=== PATIENT | female | born 1965 | race American Indian/Alaskan Native ===

== ENCOUNTER 2017-01-27 13:29 | Emergency (ER) | payer OTHER ==
[2017-01-27] MEDS ORDERED: NACL 0.9% 1000 ML 1,000 ML IV ONE (13:58)
[2017-01-27] MEDS ORDERED: ATIVAN IV ONE (13:59)
--- NOTE | 2017-01-27 14:00 | Emergency Department Report ---
ED Palpitations HPI - General Chief Complaint: Chest Pain Stated Complaint: RAPID HEART RATE Time Seen by Provider: 01/27/17 13:51 Source: patient, EMS, RN notes reviewed Mode of arrival: Stretcher Limitations: No Limitations - History of Present Illness Initial Comments: This is a 51-year-old female. She is previously unknown to me. She is brought to the hospital via EMS. Patient reports a past medical history of hypertension. Patient presents to the ER with tachycardia and arrhythmia. As per EMS documentation, patient has a chief complaint of heart racing. Patient was initially found to be in SVT. Patient had an initial EKG performed , which demonstrated SVT. EMS gave 6 mg of adenosine, which did not change the patient's condition. EMS then gave 12 mg of adenosine, EMS documents a decrease in heart rate from 180-124 bpm. Initial EKG demonstrates SVT, first EKG taken at 13:02:29. Repeat EKG demonstrated sinus tachycardia, a repeat EKG demonstrates sinus tachycardia. The patient denies chest pain and shortness of breath. There is no leg pain or leg swelling. No recent trips greater than 4 hours. No recent hospital admissions. There is no hematemesis. There is no bright red blood per rectum. There is no cocaine use. Patient denies recent trips greater than 4 hours. Denies recent hospital admissions. The patient denies irritative and obstructive urinary symptoms, she does admits to right-sided lower back pain which has been present for weeks, this is not new , worsening or different. Patient reports that she is not . MD Complaint: rapid heart beat, "heart racing", "skipped beats", palpitations -: Sudden Context: occured during rest Associated Symptoms: denies: shortness of breath, syncope, near-syncope, nausea/ vomiting, diaphoresis, cough, parasthesias, muscle cramps Treatments Prior to Arrival: adenosine - Related Data Home Medications Medication Instructions Recorded Confirmed Last Taken Hydrochlorothiazide [HCTZ] 25 mg PO DAILY 01/27/17 01/27/17 Unknown Previous Rx's Medication Instructions Recorded Last Taken Type Metoprolol [Lopressor TAB] 25 mg PO BID #60 tablet 01/27/17 Unknown Rx Allergies Allergy/AdvReac Type Severity Reaction Status Date / Time No Known Allergies Allergy Unverified 01/27/17 13:38 ED Review of Systems ROS: Stated complaint: RAPID HEART RATE Other details as noted in HPI Constitutional: denies: fever, malaise Eyes: denies: vision change ENT: denies: epistaxis Cardiovascular: palpitations Gastrointestinal: denies: vomiting Genitourinary: denies: dysuria Musculoskeletal: denies: back pain Skin: denies: lesions Neurological: weakness Psychiatric: as per HPI ED Past Medical Hx - Past Medical History Previous Medical History?: Yes Hx Hypertension: Yes Hx Asthma: Yes Additional medical history: bronchitis, - Surgical History Past Surgical History?: Yes Additional Surgical History: R. ankle - Social History Smoking Status: Current Every Day Smoker - Medications Home Medications: Home Medications Medication Instructions Recorded Confirmed Last Taken Type Hydrochlorothiazide [HCTZ] 25 mg PO DAILY 01/27/17 01/27/17 Unknown History Metoprolol [Lopressor TAB] 25 mg PO BID #60 tablet 01/27/17 Unknown Rx ED Physical Exam - General Limitations: No Limitations General appearance: alert, in no apparent distress - Head Head exam: Present: atraumatic, normocephalic - Eye Eye exam: Present: normal appearance, EOMI. Absent: nystagmus - ENT ENT exam: Present: normal exam, normal orophraynx, mucous membranes moist, normal external ear exam - Neck Neck exam: Present: normal inspection, full ROM. Absent: tenderness, meningismus - Respiratory Respiratory exam: Present: normal lung sounds bilaterally. Absent: respiratory distress, wheezes, rales, rhonchi, stridor, decreased breath sounds - Cardiovascular Cardiovascular Exam: Present: normal rhythm, tachycardia, normal heart sounds. Absent: systolic murmur, diastolic murmur, rubs, gallop - GI/Abdominal GI/Abdominal exam: Present: soft, normal bowel sounds. Absent: distended, tenderness, guarding, rebound, rigid, pulsatile mass - Extremities Exam Extremities exam: Present: normal inspection, full ROM, normal capillary refill. Absent: tenderness, pedal edema, joint swelling, calf tenderness - Back Exam Back exam: Present: normal inspection, full ROM. Absent: tenderness, CVA tenderness (R), CVA tenderness (L), muscle spasm, paraspinal tenderness, vertebral tenderness - Neurological Exam Neurological exam: Present: alert, oriented X3, normal gait, other (Extraocular movements intact. Tongue midline. No facial droop. Facial sensation intact to light touch in the V1, V2, V3 distribution bilaterally. 5 and 5 strength in 4 extremities.. Sensation is intact to light touch in 4 extremities.). Absent : motor sensory deficit - Psychiatric Psychiatric exam: Present: normal affect, normal mood - Skin Skin exam: Present: warm, dry, intact, normal color. Absent: rash ED Course Vital Signs 01/27/17 01/27/17 01/27/17 13:44 13:45 13:47 Temperature Pulse Rate 126 H 124 H 125 H Respiratory 18 27 H 26 H Rate Blood Pressure Blood Pressure [Right] O2 Sat by Pulse Oximetry 01/27/17 01/27/17 01/27/17 13:49 13:51 13:53 Temperature Pulse Rate 127 H 127 H 124 H Respiratory 23 21 16 Rate Blood Pressure Blood Pressure [Right] O2 Sat by Pulse Oximetry 01/27/17 01/27/17 01/27/17 13:55 13:57 13:59 Temperature Pulse Rate 124 H 125 H 124 H Respiratory 26 H 20 20 Rate Blood Pressure 153/93 153/93 153/93 Blood Pressure [Right] O2 Sat by Pulse Oximetry 01/27/17 01/27/17 01/27/17 14:00 14:01 14:03 Temperature 98.2 F Pulse Rate 122 H 121 H 120 H Respiratory 24 24 17 Rate Blood Pressure 165/89 165/89 165/89 Blood Pressure 153/93 [Right] O2 Sat by Pulse Oximetry 01/27/17 01/27/17 01/27/17 14:05 14:07 14:09 Temperature Pulse Rate 120 H 120 H 126 H Respiratory 22 21 22 Rate Blood Pressure 165/89 165/89 165/89 Blood Pressure [Right] O2 Sat by Pulse Oximetry 01/27/17 01/27/17 01/27/17 14:11 14:13 14:15 Temperature Pulse Rate 122 H 120 H 119 H Respiratory 22 21 21 Rate Blood Pressure 165/89 165/89 165/89 Blood Pressure [Right] O2 Sat by Pulse Oximetry 01/27/17 01/27/17 01/27/17 14:17 14:19 14:21 Temperature Pulse Rate 119 H 118 H 116 H Respiratory 20 21 22 Rate Blood Pressure 165/89 165/89 165/89 Blood Pressure [Right] O2 Sat by Pulse Oximetry 01/27/17 01/27/17 01/27/17 14:23 14:25 14:27 Temperature Pulse Rate 116 H 117 H 115 H Respiratory 21 20 20 Rate Blood Pressure 165/89 165/89 165/89 Blood Pressure [Right] O2 Sat by Pulse Oximetry 01/27/17 01/27/17 01/27/17 14:29 14:30 14:31 Temperature Pulse Rate 121 H 122 H 123 H Respiratory 17 20 20 Rate Blood Pressure 165/89 145/98 145/98 Blood Pressure [Right] O2 Sat by Pulse Oximetry 01/27/17 01/27/17 01/27/17 14:33 14:35 14:37 Temperature Pulse Rate 122 H 118 H 117 H Respiratory 21 18 19 Rate Blood Pressure 145/98 145/98 145/98 Blood Pressure [Right] O2 Sat by Pulse Oximetry 01/27/17 01/27/17 01/27/17 14:39 14:41 14:43 Temperature Pulse Rate 120 H 118 H 115 H Respiratory 14 21 16 Rate Blood Pressure 145/98 145/98 145/98 Blood Pressure [Right] O2 Sat by Pulse Oximetry 01/27/17 01/27/17 01/27/17 14:45 14:47 14:49 Temperature Pulse Rate 114 H 114 H 118 H Respiratory 18 18 26 H Rate Blood Pressure 145/98 145/98 145/98 Blood Pressure [Right] O2 Sat by Pulse Oximetry 01/27/17 01/27/17 01/27/17 14:51 14:53 14:55 Temperature Pulse Rate 117 H 114 H 119 H Respiratory 27 H 22 23 Rate Blood Pressure 145/98 145/98 145/98 Blood Pressure [Right] O2 Sat by Pulse Oximetry 01/27/17 01/27/17 01/27/17 14:56 14:57 15:03 Temperature Pulse Rate 117 H 117 H Respiratory 21 16 Rate Blood Pressure 145/98 145/98 145/98 Blood Pressure [Right] O2 Sat by Pulse 98 Oximetry 01/27/17 01/27/17 01/27/17 15:05 15:06 15:08 Temperature Pulse Rate 114 H 118 H 114 H Respiratory 25 H 23 23 Rate Blood Pressure 149/107 149/107 149/107 Blood Pressure [Right] O2 Sat by Pulse 98 99 99 Oximetry 01/27/17 01/27/17 01/27/17 15:10 15:12 15:14 Temperature Pulse Rate 109 H 112 H Respiratory 20 18 18 Rate Blood Pressure 149/107 149/107 Blood Pressure [Right] O2 Sat by Pulse 99 97 Oximetry 01/27/17 01/27/17 01/27/17 15:16 15:18 15:19 Temperature Pulse Rate 107 H 109 H 113 H Respiratory 19 13 22 Rate Blood Pressure 149/107 149/107 Blood Pressure [Right] O2 Sat by Pulse 98 98 97 Oximetry 01/27/17 01/27/17 01/27/17 15:20 15:22 15:24 Temperature Pulse Rate 112 H 112 H 109 H Respiratory 22 21 25 H Rate Blood Pressure Blood Pressure [Right] O2 Sat by Pulse 97 97 96 Oximetry 01/27/17 01/27/17 01/27/17 15:26 15:28 15:30 Temperature Pulse Rate 114 H 111 H 111 H Respiratory 13 20 26 H Rate Blood Pressure Blood Pressure [Right] O2 Sat by Pulse 96 96 96 Oximetry 01/27/17 01/27/17 01/27/17 15:32 15:34 15:36 Temperature Pulse Rate 109 H 109 H 105 H Respiratory 27 H 26 H 22 Rate Blood Pressure Blood Pressure [Right] O2 Sat by Pulse 96 96 98 Oximetry 01/27/17 01/27/17 01/27/17 15:38 15:40 15:42 Temperature Pulse Rate 106 H 114 H 112 H Respiratory 19 16 18 Rate Blood Pressure 149/107 149/107 Blood Pressure [Right] O2 Sat by Pulse 98 100 98 Oximetry 01/27/17 01/27/17 01/27/17 15:44 15:46 15:48 Temperature Pulse Rate 115 H 113 H 112 H Respiratory 20 26 H 24 Rate Blood Pressure 149/107 149/107 149/107 Blood Pressure [Right] O2 Sat by Pulse 97 99 98 Oximetry 01/27/17 01/27/17 01/27/17 15:50 15:52 15:54 Temperature Pulse Rate 109 H 108 H 110 H Respiratory 26 H 23 18 Rate Blood Pressure 149/107 149/107 149/107 Blood Pressure [Right] O2 Sat by Pulse 98 99 99 Oximetry 01/27/17 01/27/17 01/27/17 15:56 15:58 16:00 Temperature Pulse Rate 110 H 107 H 108 H Respiratory 18 22 23 Rate Blood Pressure 149/107 149/107 156/102 Blood Pressure [Right] O2 Sat by Pulse 98 98 98 Oximetry 01/27/17 01/27/17 01/27/17 16:02 16:04 16:06 Temperature Pulse Rate 110 H 108 H 110 H Respiratory 22 22 15 Rate Blood Pressure 156/102 156/102 156/102 Blood Pressure [Right] O2 Sat by Pulse 98 98 98 Oximetry 01/27/17 01/27/17 01/27/17 16:08 16:10 16:12 Temperature Pulse Rate 115 H 115 H 113 H Respiratory 21 20 18 Rate Blood Pressure 156/102 156/102 156/102 Blood Pressure [Right] O2 Sat by Pulse Oximetry 01/27/17 01/27/17 01/27/17 16:14 16:16 16:18 Temperature Pulse Rate 108 H 104 H 102 H Respiratory 17 22 23 Rate Blood Pressure 156/102 156/102 156/102 Blood Pressure [Right] O2 Sat by Pulse 95 94 95 Oximetry 01/27/17 01/27/17 01/27/17 16:20 16:22 16:24 Temperature Pulse Rate 104 H 103 H 102 H Respiratory 23 23 23 Rate Blood Pressure 156/102 156/102 156/102 Blood Pressure [Right] O2 Sat by Pulse 94 95 93 Oximetry 01/27/17 01/27/17 01/27/17 16:26 16:28 16:30 Temperature Pulse Rate 105 H 107 H 102 H Respiratory 22 22 20 Rate Blood Pressure 156/102 156/102 156/102 Blood Pressure [Right] O2 Sat by Pulse 94 Oximetry 01/27/17 01/27/17 01/27/17 16:32 16:34 16:36 Temperature Pulse Rate 102 H 102 H 104 H Respiratory 22 21 20 Rate Blood Pressure 156/102 156/102 156/102 Blood Pressure [Right] O2 Sat by Pulse 94 93 95 Oximetry 01/27/17 01/27/17 01/27/17 16:38 16:40 16:42 Temperature Pulse Rate 99 H 102 H 117 H Respiratory 21 16 22 Rate Blood Pressure 156/102 156/102 156/102 Blood Pressure [Right] O2 Sat by Pulse 94 96 98 Oximetry 01/27/17 01/27/17 01/27/17 16:44 16:46 16:48 Temperature Pulse Rate 112 H 107 H 105 H Respiratory 23 22 21 Rate Blood Pressure 156/102 156/102 156/102 Blood Pressure [Right] O2 Sat by Pulse 95 92 Oximetry 0401/27/17 01/27/17 16:50 16:52 16:54 Temperature Pulse Rate 105 H 102 H 102 H Respiratory 21 20 21 Rate Blood Pressure 156/102 156/102 156/102 Blood Pressure [Right] O2 Sat by Pulse 91 92 93 Oximetry 01/27/17 01/27/17 01/27/17 16:56 16:58 16:59 Temperature Pulse Rate 103 H 103 H 103 H Respiratory 20 21 21 Rate Blood Pressure 156/102 156/102 156/102 Blood Pressure [Right] O2 Sat by Pulse 91 Oximetry 01/27/17 01/27/17 01/27/17 17:00 17:01 17:02 Temperature Pulse Rate 102 H 101 H 101 H Respiratory 18 20 21 Rate Blood Pressure 155/88 155/88 155/88 Blood Pressure [Right] O2 Sat by Pulse 94 93 94 Oximetry 01/27/17 01/27/17 01/27/17 17:04 17:06 17:08 Temperature Pulse Rate 106 H 106 H 104 H Respiratory 19 22 16 Rate Blood Pressure 155/88 155/88 155/88 Blood Pressure [Right] O2 Sat by Pulse 95 95 95 Oximetry 01/27/17 01/27/17 01/27/17 17:10 17:12 17:14 Temperature Pulse Rate 102 H 109 H 104 H Respiratory 20 16 20 Rate Blood Pressure 155/88 155/88 155/88 Blood Pressure [Right] O2 Sat by Pulse 93 93 93 Oximetry 01/27/17 01/27/17 01/27/17 17:15 17:16 17:25 Temperature Pulse Rate 108 H 101 H Respiratory 26 H 18 Rate Blood Pressure 155/88 155/88 Blood Pressure 155/88 [Right] O2 Sat by Pulse 96 94 97 Oximetry - Reevaluation(s) Reevaluation #1: 01/27/17 14:34 Differential diagnosis: Arrhythmia, SVT, electrolyte imbalance, dehydration, anemia, acute coronary syndrome, pulmonary embolus Assessment and plan: 51-year-old female with apparently unprovoked SVT. There are no pulmonary embolus or DVT risk factors, she is low risk by well's criteria. She is clinically sober, and denies sympathomimetic ingestion. She is clinically well appearing at this time, the only noted abnormality is tachycardia, which appears to be improving. I think it is unlikely that she requires admission for acute coronary syndrome risk stratification. We will check basic laboratory studies, x-ray of the chest, reassess after initial data points. We will also discuss with cardiology on-call. Reevaluation #2: 01/27/17 16:18 laboratory studies reviewed and are unremarkable. D-dimer negative. Repeat EKG demonstrates persistent tachycardia, with rate of 113. Case is discussed with cardiology, Dr. Velazquez He has personally reviewed the patient's EKGs. We both agree patient is suitable for discharge, with beta donato. Cardiology is okay with administration of beta donato in the emergency room for correction of persistent tachycardia. The patient reports that she feels more improved. Reevaluation #3: 01/27/17 16:22 Patient is chest pain-free without any shortness of breath or symptoms consistent with acute coronary syndrome. I don't believe that she requires a restrained medication in the emergency department for acute coronary syndrome. Low risk by FRANCOISE score, low risk by heart score. Reevaluation #4: 01/27/17 16:39 Heart rate is now 101. Patient resting comfortably. I see no indication for Lopressor at this time. Patient will be discharged. ED Medical Decision Making - Lab Data Result diagrams: 01/27/17 13:58 01/27/17 13:58 Vital Signs 01/27/17 14:00 Temperature 98.2 F Pulse Rate 130 H Respiratory 18 Rate Blood Pressure 153/93 [Right] Vital Signs 01/27/17 01/27/17 01/27/17 13:44 13:45 13:47 Temperature Pulse Rate 126 H 124 H 125 H Respiratory 18 27 H 26 H Rate Blood Pressure Blood Pressure [Right] O2 Sat by Pulse Oximetry 01/27/17 01/27/17 01/27/17 13:49 13:51 13:53 Temperature Pulse Rate 127 H 127 H 124 H Respiratory 23 21 16 Rate Blood Pressure Blood Pressure [Right] O2 Sat by Pulse Oximetry 01/27/17 01/27/17 01/27/17 13:55 13:57 13:59 Temperature Pulse Rate 124 H 125 H 124 H Respiratory 26 H 20 20 Rate Blood Pressure 153/93 153/93 153/93 Blood Pressure [Right] O2 Sat by Pulse Oximetry 01/27/17 01/27/17 01/27/17 14:00 14:01 14:03 Temperature 98.2 F Pulse Rate 122 H 121 H 120 H Respiratory 24 24 17 Rate Blood Pressure 165/89 165/89 165/89 Blood Pressure 153/93 [Right] O2 Sat by Pulse Oximetry 01/27/17 01/27/17 01/27/17 14:05 14:07 14:09 Temperature Pulse Rate 120 H 120 H 126 H Respiratory 22 21 22 Rate Blood Pressure 165/89 165/89 165/89 Blood Pressure [Right] O2 Sat by Pulse Oximetry 01/27/17 01/27/17 01/27/17 14:11 14:13 14:15 Temperature Pulse Rate 122 H 120 H 119 H Respiratory 22 21 21 Rate Blood Pressure 165/89 165/89 165/89 Blood Pressure [Right] O2 Sat by Pulse Oximetry 01/27/17 01/27/17 01/27/17 14:17 14:19 14:21 Temperature Pulse Rate 119 H 118 H 116 H Respiratory 20 21 22 Rate Blood Pressure 165/89 165/89 165/89 Blood Pressure [Right] O2 Sat by Pulse Oximetry 01/27/17 01/27/17 01/27/17 14:23 14:25 14:27 Temperature Pulse Rate 116 H 117 H 115 H Respiratory 21 20 20 Rate Blood Pressure 165/89 165/89 165/89 Blood Pressure [Right] O2 Sat by Pulse Oximetry 01/27/17 01/27/17 01/27/17 14:29 14:30 14:31 Temperature Pulse Rate 121 H 122 H 123 H Respiratory 17 20 20 Rate Blood Pressure 165/89 145/98 145/98 Blood Pressure [Right] O2 Sat by Pulse Oximetry 01/27/17 01/27/17 01/27/17 14:33 14:35 14:37 Temperature Pulse Rate 122 H 118 H 117 H Respiratory 21 18 19 Rate Blood Pressure 145/98 145/98 145/98 Blood Pressure [Right] O2 Sat by Pulse Oximetry 01/27/17 01/27/17 01/27/17 14:39 14:41 14:43 Temperature Pulse Rate 120 H 118 H 115 H Respiratory 14 21 16 Rate Blood Pressure 145/98 145/98 145/98 Blood Pressure [Right] O2 Sat by Pulse Oximetry 01/27/17 01/27/17 01/27/17 14:45 14:47 14:49 Temperature Pulse Rate 114 H 114 H 118 H Respiratory 18 18 26 H Rate Blood Pressure 145/98 145/98 145/98 Blood Pressure [Right] O2 Sat by Pulse Oximetry 01/27/17 01/27/17 01/27/17 14:51 14:53 14:55 Temperature Pulse Rate 117 H 114 H 119 H Respiratory 27 H 22 23 Rate Blood Pressure 145/98 145/98 145/98 Blood Pressure [Right] O2 Sat by Pulse Oximetry 01/27/17 01/27/17 01/27/17 14:56 14:57 15:03 Temperature Pulse Rate 117 H 117 H Respiratory 21 16 Rate Blood Pressure 145/98 145/98 145/98 Blood Pressure [Right] O2 Sat by Pulse 98 Oximetry 01/27/17 01/27/17 01/27/17 15:05 15:06 15:12 Temperature Pulse Rate 114 H 118 H Respiratory 25 H 23 18 Rate Blood Pressure 149/107 149/107 Blood Pressure [Right] O2 Sat by Pulse 98 99 Oximetry Lab Results 01/27/17 01/27/17 01/27/17 Range/Units 13:58 13:58 14:04 WBC 6.6 (4.5-11.0) K/mm3 RBC 5.23 H (3.65-5.03) M/mm3 Hgb 14.3 (10.1-14.3) gm/dl Hct 42.7 (30.3-42.9) % MCV 82 (79-97) fl MCH 27 L (28-32) pg MCHC 34 (30-34) % RDW 14.9 (13.2-15.2) % Plt Count 232 (140-440) K/mm3 Lymph % (Auto) 39.3 H (13.4-35.0) % Walker % (Auto) 6.6 (0.0-7.3) % Eos % (Auto) 1.9 (0.0-4.3) % Baso % (Auto) 1.0 (0.0-1.8) % Lymph # 2.6 (1.2-5.4) K/mm3 Walker # 0.4 (0.0-0.8) K/mm3 Eos # 0.1 (0.0-0.4) K/mm3 Baso # 0.1 (0.0-0.1) K/mm3 Seg Neutrophils % 51.2 (40.0-70.0) % Seg Neutrophils # 3.4 (1.8-7.7) K/mm3 PT 12.5 (12.2-14.9) Sec. INR 0.94 (0.87-1.13) D-Dimer < 135 (0-234) ng/mlDDU Sodium 139 (137-145) mmol/L Potassium 4.6 (3.6-5.0) mmol/L Chloride 100.1 (98-107) mmol/L Carbon Dioxide 24 (22-30) mmol/L Anion Gap 20 mmol/L BUN 10 (7-17) mg/dL Creatinine 0.7 (0.7-1.2) mg/dL Estimated GFR > 60 ml/min BUN/Creatinine Ratio 14.28 % Glucose 104 H (65-100) mg/dL Calcium 9.3 (8.4-10.2) mg/dL Magnesium (1.7-2.3) mg/dL Troponin T < 0.010 (0.00-0.029) ng/mL TSH (0.270-4.200) mlU/mL HCG, Quant (0-4) mIU/mL 01/27/17 01/27/17 01/27/17 Range/Units 14:04 14:04 14:04 WBC (4.5-11.0) K/mm3 RBC (3.65-5.03) M/mm3 Hgb (10.1-14.3) gm/dl Hct (30.3-42.9) % MCV (79-97) fl MCH (28-32) pg MCHC (30-34) % RDW (13.2-15.2) % Plt Count (140-440) K/mm3 Lymph % (Auto) (13.4-35.0) % Walker % (Auto) (0.0-7.3) % Eos % (Auto) (0.0-4.3) % Baso % (Auto) (0.0-1.8) % Lymph # (1.2-5.4) K/mm3 Walker # (0.0-0.8) K/mm3 Eos # (0.0-0.4) K/mm3 Baso # (0.0-0.1) K/mm3 Seg Neutrophils % (40.0-70.0) % Seg Neutrophils # (1.8-7.7) K/mm3 PT (12.2-14.9) Sec. INR (0.87-1.13) D-Dimer (0-234) ng/mlDDU Sodium (137-145) mmol/L Potassium (3.6-5.0) mmol/L Chloride (98-107) mmol/L Carbon Dioxide (22-30) mmol/L Anion Gap mmol/L BUN (7-17) mg/dL Creatinine (0.7-1.2) mg/dL Estimated GFR ml/min BUN/Creatinine Ratio % Glucose (65-100) mg/dL Calcium (8.4-10.2) mg/dL Magnesium 1.9 (1.7-2.3) mg/dL Troponin T (0.00-0.029) ng/mL TSH 4.430 H (0.270-4.200) mlU/mL HCG, Quant < 2 (0-4) mIU/mL - EKG Data 01/27/17 14:36 Sinus tachycardia, 127 bpm, QTC 485 ms, not morphologically consistent with STEMI, there is no prior EKG available for comparison. EKG #2 demonstrates sinus tachycardia, 113 bpm, normal intervals, normal axis, not consistent with STEMI. 01/27/17 16:19 - Radiology Data Radiology results: pending, report reviewed, image reviewed X-ray of the chest is negative for acute disease Critical care attestation.: If time is entered above; I have spent that time in minutes in the direct care of this critically ill patient, excluding procedure time. ED Disposition Clinical Impression: Tachycardia Disposition: DISCHARGED TO HOME OR SELFCARE Is pt being admited?: No Does the pt Need Aspirin: No Condition: Stable Instructions: Supraventricular Tachycardia (ED) Additional Instructions: Take the medications as directed. Follow up with the primary care doctor or baggage clerk within the next week to [address] Velazquez is a local curatorial specialist. Symptoms most likely coming today from supraventricular tachycardia, which is a benign cardiac arrhythmia. Avoid consumption of caffeinated beverages and stimulants. Return to the ER right away with chest pain, shortness of breath, nausea or vomiting, inability to tolerate liquid feeds, new, worsening or different symptoms. Prescriptions: Metoprolol [Lopressor TAB] 25 mg PO BID #60 tablet Referrals: PRIMARY CARE, [Primary Care Provider] - 3-5 Days MOOKIE VELAZQUEZ MD [Staff Physician] - 3-5 Days Time of Disposition: 16:21 (d/c once heart rate less than 100)
--- NOTE | 2017-01-27 14:13 | XRay Report ---
CHEST ONE VIEW INDICATION: Tachycardia. COMPARISON: None similar. FINDINGS: Portable, single, frontal chest radiograph demonstrates normal cardiomediastinal silhouette. Well-expanded, fairly clear lungs. Unremarkable bones. Extrinsic EKG leads. CONCLUSION: No acute disease in the chest. Thank you for the opportunity to participate in this patient's care.
[2017-01-27 14:51] LABS: Eosinophils % (Auto) 1.9 % (0.0-4.3); Hematocrit 42.7 % (30.3-42.9); Hemoglobin 14.3 gm/dl (10.1-14.3); Mean Corpuscular HGB Conc 34 % (30-34); Mean Corpuscular Hemoglobin 27 pg (28-32); Mean Corpuscular Volume 82 fl (79-97); Platelet Count 232 K/mm3 (140-440); Red Blood Count 5.23 M/mm3 (3.65-5.03); Red Cell Distribution Width 14.9 % (13.2-15.2); White Blood Count 6.6 K/mm3 (4.5-11.0)
[2017-01-27 14:53] LABS: INR 0.94 (0.87-1.13)
[2017-01-27 15:14] LABS: Anion Gap 20 mmol/L; BUN/Creatinine Ratio 14.28; Blood Urea Nitrogen 10 mg/dL (7-17); Calcium 9.3 mg/dL (8.4-10.2); Carbon Dioxide 24 mmol/L (22-30); Chloride 100.1 mmol/L (98-107); Glucose 104 mg/dL (65-100); Potassium 4.6 mmol/L (3.6-5.0); Sodium 139 mmol/L (137-145)
[2017-01-27] MEDS ORDERED: LOPRESSOR IV ONE (16:08)
[2017-01-27 17:26] VITALS: BP 155/88
== END 2017-01-27 17:27 | disposition home or self-care (01) ==
LOC: ED 13:29
DX: R00.0 Tachycardia, unspecified (principal); I10 Essential (primary) hypertension; J45.909 Unspecified asthma, uncomplicated; F17.200 Nicotine dependence, unspecified, uncomplicated
CPT/HCPCS: 36415; 71010; 80048; 83735; 84443; 84484; 84702; 85025; 85379; 85610; 93005; 93010; 96361; 96374; 99285; J2060; J7030

== ENCOUNTER 2018-04-20 12:36 | Emergency (ER) | payer BC ==
[2018-04-20 12:55] VITALS: BP 174/105
[2018-04-20 14:00] LABS: Basophils # (Auto) 0.1 K/mm3 (0.0-0.1); Basophils % (Auto) 1.3 % (0.0-1.8); Eosinophils # (Auto) 0.1 K/mm3 (0.0-0.4); Eosinophils % (Auto) 1.1 % (0.0-4.3); Hematocrit 42.1 % (30.3-42.9); Hemoglobin 14.2 gm/dl (10.1-14.3); Lymphocytes # (Auto) 2.1 K/mm3 (1.2-5.4); Lymphocytes % (Auto) 23.3 % (13.4-35.0); Mean Corpuscular HGB Conc 34 % (30-34); Mean Corpuscular Hemoglobin 28 pg (28-32); Mean Corpuscular Volume 82 fl (79-97); Monocytes # (Auto) 0.6 K/mm3 (0.0-0.8); Monocytes % (Auto) 7.3 % (0.0-7.3); Platelet Count 255 K/mm3 (140-440); Red Blood Count 5.12 M/mm3 (3.65-5.03); Red Cell Distribution Width 14.3 % (13.2-15.2)
[2018-04-20 14:13] LABS: BUN/Creatinine Ratio 13; Blood Urea Nitrogen 8 mg/dL (7-17); Calcium 9.8 mg/dL (8.4-10.2); Hemolysis Index 3
== END 2018-04-20 15:48 | disposition left against medical advice (07) ==
LOC: ED 12:36
DX: R07.9 Chest pain, unspecified (principal); M54.2 Cervicalgia; R06.02 Shortness of breath; J45.909 Unspecified asthma, uncomplicated; I10 Essential (primary) hypertension; Z98.51 Tubal ligation status; F17.200 Nicotine dependence, unspecified, uncomplicated; Z53.21 Procedure and treatment not carried out due to patient leaving prior to being seen by health care provider
CPT/HCPCS: 36415; 80048; 84484; 85025; 93005; 93010

== ENCOUNTER 2019-11-04 10:15 | Emergency (ER) | payer BC ==
[2019-11-04] MEDS ORDERED: ASPIRIN 325 MG TAB PO ONE (10:28)
--- NOTE | 2019-11-04 11:00 | Emergency Department Report ---
<BROOKEJUSTICE BERNSTEIN Bria - Last Filed: 11/04/19 15:14> ED Chest Pain HPI - General Chief Complaint: Chest Pain Stated Complaint: LFT SIDE TINGLE/CHEST PAIN Time Seen by Provider: 11/04/19 10:53 Source: patient Mode of arrival: Ambulatory Limitations: No Limitations - History of Present Illness Initial Comments: 54 yo AA female comes to ER with 2 day hx of intermittent left side chest pain, dull in nature. Radiates to L shoulder. It scared her today and she called 911. She denies n/v/diaphoresis. This pain is similar to but not as bad as when she had ACS in 08/12. Denies SOB. Denies fever/chills. She is followed by Dr Palafox. Last seen in cards 09/13. Continues to smoke Compliant with meds cath 09/13 LAD with patent sent; mild LI LM normal RCA non obs diffuse disease Circ patent stent normal EF home meds asa statin plavix imdur losartan metoprolol protonix She has scheduled follow up with [facility] next Thu. Complaint: chest pain -: Gradual, days(s) Onset: during rest, during exertion Pain Location: left chest Pain Radiation: LUE Severity: mild Severity scale (0 -10): 2 Quality: dull Consistency: intermittent Improves With: nothing Worsens With: nothing Other Symptoms: denies: cough, fever, syncope, rash, acid taste in mouth, leg swelling, palpitations, burping Aspirin use within the Past 7 Days: (1) Yes - Related Data On Oral Contraceptives: No Home Medications Medication Instructions Recorded Confirmed Last Taken Aspirin 325 mg PO DAILY 08/25/18 08/25/18 08/25/18 Clopidogrel [Plavix] 75 mg PO DAILY 08/25/18 08/25/18 08/25/18 ISOSORBIDE MONOnitrate [Imdur ER] 30 mg PO DAILY 08/25/18 08/25/18 08/25/18 Losartan [Cozaar] 25 mg PO DAILY 08/25/18 08/25/18 08/25/18 Metoprolol Xl [Metoprolol 50 mg PO DAILY 08/25/18 08/25/18 08/25/18 SUCCINATE ER TAB] Previous Rx's Medication Instructions Recorded Last Taken Type AtorvaSTATin [Lipitor] 40 mg PO QHS #30 tablet 08/21/18 08/25/18 Rx Pantoprazole [Protonix] 40 mg PO QDAY #30 tablet 08/27/18 Unknown Rx Allergies Allergy/AdvReac Type Severity Reaction Status Date / Time No Known Allergies Allergy Verified 08/25/18 18:25 Heart Score - HEART Score History: Slightly suspicious EKG: Normal Age: 45-65 Risk factors: > 3 risk factors or hx of atherosclerotic disease Troponin: < normal limit HEART Score: 3 ED Review of Systems Comment: All other systems reviewed and negative Constitutional: denies: chills, fever Eyes: denies: eye pain, eye discharge, vision change ENT: denies: ear pain, throat pain Respiratory: denies: cough, shortness of breath, wheezing Cardiovascular: denies: chest pain, palpitations Endocrine: no symptoms reported Gastrointestinal: denies: abdominal pain, nausea, diarrhea Genitourinary: denies: urgency, dysuria, discharge Musculoskeletal: denies: back pain, joint swelling, arthralgia Skin: denies: rash, lesions Neurological: denies: headache, weakness, paresthesias Psychiatric: denies: anxiety, depression Hematological/Lymphatic: denies: easy bleeding, easy bruising ED Past Medical Hx - Past Medical History Hx Hypertension: Yes Hx CVA: No Hx Heart Attack/AMI: Yes Hx Congestive Heart Failure: No Hx Diabetes: No Hx Deep Vein Thrombosis: No Hx Pulmonary Embolism: No Hx GERD: Yes Hx Liver Disease: No Hx Renal Disease: No Hx of Cancer: No Hx Sickle Cell Disease: No Hx Arthritis: No Hx Headaches / Migraines: No Hx Seizures: No Hx Kidney Stones: No Hx Psychiatric Treatment: No Hx Asthma: Yes Hx COPD: No Hx HIV: No Additional medical history: bronchitis, - Surgical History Past Surgical History?: Yes Hx Coronary Stent: Yes Additional Surgical History: R. ankle. tubal liagation - Family History Family history: other (dad dec KD; mom alive with htn) - Social History Smoking Status: Current Every Day Smoker Substance Use Type: Alcohol (occ) - Medications Home Medications: Home Medications Medication Instructions Recorded Confirmed Last Taken Type AtorvaSTATin [Lipitor] 40 mg PO QHS #30 tablet 08/21/18 08/25/18 08/25/18 Rx Aspirin 325 mg PO DAILY 08/25/18 08/25/18 08/25/18 History Clopidogrel [Plavix] 75 mg PO DAILY 08/25/18 08/25/18 08/25/18 History ISOSORBIDE MONOnitrate [Imdur ER] 30 mg PO DAILY 08/25/18 08/25/18 08/25/18 History Losartan [Cozaar] 25 mg PO DAILY 08/25/18 08/25/18 08/25/18 History Metoprolol Xl [Metoprolol 50 mg PO DAILY 08/25/18 08/25/18 08/25/18 History SUCCINATE ER TAB] Pantoprazole [Protonix] 40 mg PO QDAY #30 tablet 08/27/18 Unknown Rx ED Physical Exam - General Limitations: No Limitations General appearance: alert, in no apparent distress - Head Head exam: Present: atraumatic, normocephalic - Eye Eye exam: Present: normal appearance - ENT ENT exam: Present: mucous membranes moist - Neck Neck exam: Present: normal inspection - Respiratory Respiratory exam: Present: normal lung sounds bilaterally. Absent: respiratory distress - Cardiovascular Cardiovascular Exam: Present: regular rate, normal rhythm. Absent: systolic murmur, diastolic murmur, rubs, gallop - GI/Abdominal GI/Abdominal exam: Present: soft, normal bowel sounds - Extremities Exam Extremities exam: Present: normal inspection - Back Exam Back exam: Present: normal inspection - Neurological Exam Neurological exam: Present: alert, oriented X3 - Psychiatric Psychiatric exam: Present: normal affect, normal mood - Skin Skin exam: Present: warm, dry, intact, normal color. Absent: rash ERICK score - Erick Score Age > 65: (0) No Aspirin use within the Past 7 Days: (1) Yes 3 or more CAD Risk Factors: (1) Yes 2 or more Angina events in past 24 hrs: (0) No Known CAD with more than 50% Stenosis: (1) Yes Elevated Cardiac Markers: (1) Yes ST Deviation Greater than 0.5mm: (0) No ERICK Score: 4 ED Medical Decision Making - Lab Data Result diagrams: 11/04/19 11:31 11/04/19 11:31 - EKG Data EKG shows normal: sinus rhythm Rate: normal - EKG Data When compared to previous EKG there are: no significant change Interpretation: no acute changes - Radiology Data Radiology results: report reviewed, image reviewed - Medical Decision Making Lab Results 01/10/20 01/10/20 01/10/20 Range/Units 11:30 11:31 11:31 WBC 4.4 L (4.5-11.0) K/mm3 RBC 4.87 (3.65-5.03) M/mm3 Hgb 13.8 (10.1-14.3) gm/dl Hct 40.3 (30.3-42.9) % MCV 83 (79-97) fl MCH 28 (28-32) pg MCHC 34 (30-34) % RDW 14.1 (13.2-15.2) % Plt Count 236 (140-440) K/mm3 Lymph % (Auto) 35.4 H (13.4-35.0) % [place] % (Auto) 7.2 (0.0-7.3) % Eos % (Auto) 1.7 (0.0-4.3) % Baso % (Auto) 0.9 (0.0-1.8) % Lymph # 1.6 (1.2-5.4) K/mm3 [place] # 0.3 (0.0-0.8) K/mm3 Eos # 0.1 (0.0-0.4) K/mm3 Baso # 0.0 (0.0-0.1) K/mm3 Seg Neutrophils % 54.8 (40.0-70.0) % Seg Neutrophils # 2.4 (1.8-7.7) K/mm3 Sodium 138 (137-145) mmol/L Potassium 4.1 (3.6-5.0) mmol/L Chloride 100.9 (98-107) mmol/L Carbon Dioxide 23 (22-30) mmol/L Anion Gap 18 mmol/L BUN 13 (7-17) mg/dL Creatinine 0.8 (0.7-1.2) mg/dL Estimated GFR > 60 ml/min BUN/Creatinine Ratio 16 % Glucose 97 (65-100) mg/dL Calcium 9.2 (8.4-10.2) mg/dL Total Bilirubin 0.50 (0.1-1.2) mg/dL Direct Bilirubin < 0.2 (0-0.2) mg/dL AST 14 (5-40) units/L ALT 19 (7-56) units/L Alkaline Phosphatase 67 (35-129) units/L Troponin T < 0.010 (0.00-0.029) ng/mL Total Protein 7.1 (6.3-8.2) g/dL Albumin 4.0 (3.9-5) g/dL Albumin/Globulin Ratio 1.3 % Urine Color Straw (Yellow) Urine Turbidity Clear (Clear) Urine pH 6.0 (5.0-7.0) Ur Specific [place] 1.008 (1.003-1.030) Urine Protein <15 mg/dl (Negative) mg/dL Urine Glucose (UA) Neg (Negative) mg/dL Urine Ketones Neg (Negative) mg/dL Urine Blood Neg (Negative) Urine Nitrite Neg (Negative) Urine Bilirubin Neg (Negative) Urine Ictotest Not Reportable Urine Urobilinogen < 2.0 (<2.0) mg/dL Ur Leukocyte Esterase Neg (Negative) Urine WBC (Auto) < 1.0 (0.0-6.0) /HPF Urine RBC (Auto) < 1.0 (0.0-6.0) /HPF U Epithel Cells (Auto) 2.0 (0-13.0) /HPF Urine Bacteria (Auto) 1+ (Negative) /HPF Urine HCG, Qual Negative (Negative) Vital Signs (72 hours) 11/04/19 11/04/19 10:25 11:17 Temperature 98.5 F 98.2 F Pulse Rate 78 65 Respiratory 20 16 Rate Blood Pressure 141/76 Blood Pressure 114/58 [Right] O2 Sat by Pulse 97 100 Oximetry 12 lead with no change labs noted xray chest noted troponin neg 1245 Cards paged- Dr Palafox discussed case with cards- pt can be dc home with follow up on Thu as planned cath 09/13 had patent stents 1400 pt denied pain on reexam; stated the rest in ER did her good 1515 trop no 2 is neg. 2nd EKG with no change. pt updated on plan of care. dc home with follow up with cards as scheduled. to continue home meds per regimen. on dc pt denies pain; is ambulatory, taking po, VSS - Differential Diagnosis ro ACS/anxiety/musculoskeletal pain ED Disposition Clinical Impression: Chest pain Qualifiers: Chest pain type: unspecified Qualified Code(s): R07.9 - Chest pain, unspecified Disposition: - TO HOME OR SELFCARE Is pt being admited?: No Does the pt Need Aspirin: No Condition: Stable Instructions: Chest Pain (ED) Additional Instructions: FOLLOW UP WITH CARDS SCHEDULED continue home meds per routine cardiac diet activity as tolerated Referrals: JACKSON MEHTA MD [Primary Care Provider] - 3-5 Days TENISHA PALAFOX MD [Staff Physician] - 3-5 Days Time of Disposition: 12:47 <MAYRA MIRANDA P - Last Filed: 11/05/19 13:44> ED Review of Systems ROS: Stated complaint: LFT SIDE TINGLE/CHEST PAIN Other details as noted in HPI ED Course Vital Signs 11/04/19 11/04/19 11/04/19 10:25 10:44 10:45 Temperature 98.5 F Pulse Rate 78 67 68 Respiratory 20 16 18 Rate Blood Pressure 141/76 123/69 Blood Pressure [Right] O2 Sat by Pulse 97 99 97 Oximetry 11/04/19 11/04/19 11/04/19 11:00 11:15 11:17 Temperature 98.2 F Pulse Rate 63 62 65 Respiratory 18 15 16 Rate Blood Pressure 114/58 114/58 Blood Pressure 114/58 [Right] O2 Sat by Pulse 97 98 100 Oximetry 11/04/19 11/04/19 11/04/19 11:30 11:45 12:01 Temperature Pulse Rate 59 L 63 Respiratory 12 14 Rate Blood Pressure 114/58 114/58 120/66 Blood Pressure [Right] O2 Sat by Pulse 100 99 92 Oximetry 11/04/19 11/04/19 11/04/19 12:15 12:31 12:45 Temperature Pulse Rate 63 63 59 L Respiratory 15 18 17 Rate Blood Pressure 114/58 114/58 114/58 Blood Pressure [Right] O2 Sat by Pulse 99 100 100 Oximetry 11/04/19 11/04/19 11/04/19 13:00 14:19 14:31 Temperature Pulse Rate 59 L Respiratory 17 20 Rate Blood Pressure 120/66 120/66 120/66 Blood Pressure [Right] O2 Sat by Pulse 100 85 99 Oximetry 11/04/19 11/04/19 11/04/19 14:45 15:01 15:15 Temperature Pulse Rate Respiratory 16 15 16 Rate Blood Pressure 127/71 127/71 117/63 Blood Pressure [Right] O2 Sat by Pulse 99 98 96 Oximetry ED Medical Decision Making - Lab Data Result diagrams: 11/04/19 11:31 11/04/19 11:31 - Medical Decision Making Attestation: Available for consultation. Based on story and hx this patient would minimally have heart score of 4 recommended admission for further evaluation. Patient with known CAD, and chest pain radiating to the shoulder. Recommend contact patient to determine symptom progression and return to the ER if any worsening. At 1334 Patient contacted at [phone]. 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 Palafox recently made a increase in one of her medications. Reports appointment with Dr. Palafox on Thursday. Reports no chest pain today. Reports tingling in her left hand today. This patient would have benefited from cardiology consult in the ER minimally prior to discharge vs for sure discharge with a heart score no less than 4. Patient can not be deemed to have slight suspicion with known CAD and presenting symptoms of CP radiating to the left shoulder. Patient encouraged to please return to the ER if there was any remaining concern for her heart and if any symptoms worsening. Patient agrees to return if worsening. Critical care attestation.: If time is entered above; I have spent that time in minutes in the direct care of this critically ill patient, excluding procedure time. ED Disposition Is pt being admited?: No
[2019-11-04 11:41] LABS: Bacteria,Urine 1+ /HPF (Negative); Bilirubin,Urine NEG (Negative); Blood,Urine NEG (Negative); Color,Urine Straw (Yellow); HCG Qualitative,Urine Negative (Negative); Protein,Urine <15 mg/dL mg/dL (Negative); RBC,Urine < 1.0 /HPF (0.0-6.0); Urobilinogen,Urine < 2.0 mg/dL (<2.0); WBC,Urine < 1.0 /HPF (0.0-6.0)
[2019-11-04 12:10] LABS: Basophils % (Auto) 0.9 % (0.0-1.8); Eosinophils # (Auto) 0.1 K/mm3 (0.0-0.4); Eosinophils % (Auto) 1.7 % (0.0-4.3); Hematocrit 40.3 % (30.3-42.9); Hemoglobin 13.8 gm/dl (10.1-14.3); Lymphocytes # (Auto) 1.6 K/mm3 (1.2-5.4); Lymphocytes % (Auto) 35.4 % (13.4-35.0); Mean Corpuscular HGB Conc 34 % (30-34); Mean Corpuscular Volume 83 fl (79-97); Monocytes # (Auto) 0.3 K/mm3 (0.0-0.8); Monocytes % (Auto) 7.2 % (0.0-7.3); Platelet Count 236 K/mm3 (140-440); Red Blood Count 4.87 M/mm3 (3.65-5.03); Red Cell Distribution Width 14.1 % (13.2-15.2)
[2019-11-04 12:30] LABS: Alanine Aminotransferase 19 units/L (7-56); BUN/Creatinine Ratio 16; Blood Urea Nitrogen 13 mg/dL (7-17); Calcium 9.2 mg/dL (8.4-10.2); Hemolysis Index 22
[2019-11-04 12:32] LABS: Bilirubin,Direct < 0.2 mg/dL (0-0.2)
--- NOTE | 2019-11-04 12:37 | XRay Report ---
CHEST 1 VIEW INDICATION: Chest Pain. COMPARISON: 08/25/2018 FINDINGS: Support devices: None. Heart: Within normal limits. Lungs/Pleura: No acute air space or interstitial disease. Additional findings: None. IMPRESSION: No acute findings. Signer Name: Leonardo Fatima Jr, MD Signed: 11/04/2019 12:32 PM Workstation Name: [id number]
[2019-11-04 15:31] VITALS: BP 117/63
== END 2019-11-04 15:31 | disposition home or self-care (01) ==
LOC: ED 10:15
DX: R07.89 Other chest pain (principal); R20.0 Anesthesia of skin; I10 Essential (primary) hypertension; K21.9 Gastro-esophageal reflux disease without esophagitis; J45.909 Unspecified asthma, uncomplicated; Z98.51 Tubal ligation status; Z95.5 Presence of coronary angioplasty implant and graft; F17.200 Nicotine dependence, unspecified, uncomplicated; Z79.899 Other long term (current) drug therapy; Z86.73 Personal history of transient ischemic attack (TIA), and cerebral infarction without residual deficits
CPT/HCPCS: 36415; 71045; 80048; 80076; 81001; 81025; 84484; 85025; 93005; 93010

== ENCOUNTER 2020-06-27 18:19 | Emergency (ER) | payer BC ==
[2020-06-27] MEDS ORDERED: ASPIRIN 325 MG TAB PO ONE (20:16)
--- NOTE | 2020-06-27 20:18 | Event Note ---
ED Screening Note Date of service: 06/27/20 Time: 20:15 ED Screening Note: This 55-year-old female who presents to the ED with chest pain nerves arm numbness and tingling This initial assessment/diagnostic orders/clinical plan/treatment(s) is/are subject to change based on patients health status, clinical progression and re- assessment by fellow clinical providers in the ED. Further treatment and workup at subsequent clinical providers discretion. Patient/guardian urged not to elope from the ED as their condition may be serious if not clinically assessed and managed. Initial orders include: Chest pain protocol ordered
[2020-06-27 20:57] LABS: Basophils % (Auto) 1.1 % (0.0-1.8); Eosinophils % (Auto) 1.9 % (0.0-4.3); Lymphocytes % (Auto) 36.2 % (13.4-35.0); Monocytes % (Auto) 10.1 % (0.0-7.3)
[2020-06-27 21:00] LABS: Blood Urea Nitrogen 19 mg/dL (7-17); Calcium 9.5 mg/dL (8.4-10.2); Hemolysis Index 12
[2020-06-27 21:04] LABS: BUN/Creatinine Ratio 32
[2020-06-27 21:05] LABS: Basophils # (Auto) 0.1 K/mm3 (0.0-0.1); Eosinophils # (Auto) 0.1 K/mm3 (0.0-0.4); Hematocrit 41.2 % (30.3-42.9); Hemoglobin 13.9 gm/dl (10.1-14.3); Mean Corpuscular HGB Conc 34 % (30-34); Mean Corpuscular Volume 85 fl (79-97); Monocytes # (Auto) 0.6 K/mm3 (0.0-0.8); Platelet Count 248 K/mm3 (140-440); Red Blood Count 4.86 M/mm3 (3.65-5.03); Red Cell Distribution Width 14.9 % (13.2-15.2)
--- NOTE | 2020-06-27 21:24 | XRay Report ---
XR chest routine 2V INDICATION / CLINICAL INFORMATION: Chest pain COMPARISON: 11/04/2019 FINDINGS: SUPPORT DEVICES: None. HEART / MEDIASTINUM: No significant abnormality. LUNGS / PLEURA: Lungs are clear. Costophrenic sulci are sharp. No pneumothorax. ADDITIONAL FINDINGS: No significant additional findings. IMPRESSION: 1. No acute findings. Signer Name: Kalia Franks MD Signed: 06/27/2020 9:19 PM Workstation Name: [id number]
[2020-06-27 23:57] VITALS: BP 130/74
[2020-06-28 00:03] LABS: Alanine Aminotransferase 20 units/L (7-56); Albumin 4.5 g/dL (3.9-5)
--- NOTE | 2020-06-28 00:03 | Emergency Department Report ---
ED General Adult HPI - General Chief complaint: Chest Pain Stated complaint: CHEST PAINS LT ARM PAINS Time Seen by Provider: 06/27/20 22:36 Source: patient Mode of arrival: Ambulatory Limitations: No Limitations - History of Present Illness Initial comments: The patient presents to the emergency department with a chief complaint of left- sided chest pain that radiates into her left shoulder. She states the pain started at 4 PM and has been intermittent since its onset. Patient states the pain is worse when lying flat but when she stands up it goes away. She describes the pain is sharp in nature. Patient states she had a ME 2 years ago with 2 stents placed. She does have a history of hypertension and hyperlipidemia. Patient denies abdominal pain but does endorse some shortness of breath with exertion. 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 Gallardo, everything checked out okay during her visit. -: Sudden Location: chest Radiation: extremity Severity scale (0 -10): 6 Quality: sharp Consistency: intermittent Improves with: other (Sitting up) Worsens with: other (Lying flat) Associated Symptoms: denies other symptoms Treatments Prior to Arrival: none - Related Data Home Medications Medication Instructions Recorded Confirmed Last Taken Aspirin 325 mg PO DAILY 08/25/18 08/25/18 08/25/18 Clopidogrel [Plavix] 75 mg PO DAILY 08/25/18 08/25/18 08/25/18 ISOSORBIDE MONOnitrate [Imdur ER] 30 mg PO DAILY 08/25/18 08/25/18 08/25/18 Losartan [Cozaar] 25 mg PO DAILY 08/25/18 08/25/18 08/25/18 Metoprolol Xl [Metoprolol 50 mg PO DAILY 08/25/18 08/25/18 08/25/18 SUCCINATE ER TAB] Previous Rx's Medication Instructions Recorded Last Taken Type AtorvaSTATin [Lipitor] 40 mg PO QHS #30 tablet 08/21/18 08/25/18 Rx Pantoprazole [Protonix] 40 mg PO QDAY #30 tablet 08/27/18 Unknown Rx Allergies Allergy/AdvReac Type Severity Reaction Status Date / Time No Known Allergies Allergy Verified 08/25/18 18:25 ED Review of Systems ROS: Stated complaint: CHEST PAINS LT ARM PAINS Other details as noted in HPI Constitutional: denies: chills, fever Eyes: denies: eye pain, eye discharge, vision change ENT: denies: ear pain, throat pain Respiratory: denies: cough, shortness of breath, wheezing Cardiovascular: chest pain. denies: palpitations Endocrine: no symptoms reported Gastrointestinal: denies: abdominal pain, nausea, diarrhea Genitourinary: denies: urgency, dysuria, discharge Musculoskeletal: denies: back pain, joint swelling, arthralgia Skin: denies: rash, lesions Neurological: denies: headache, weakness, paresthesias Psychiatric: denies: anxiety, depression Hematological/Lymphatic: denies: easy bleeding, easy bruising ED Past Medical Hx - Past Medical History Previous Medical History?: Yes Hx Hypertension: Yes Hx CVA: No Hx Heart Attack/AMI: Yes Hx Congestive Heart Failure: No Hx Diabetes: No Hx Deep Vein Thrombosis: No Hx Pulmonary Embolism: No Hx GERD: Yes Hx Liver Disease: No Hx Renal Disease: No Hx Sickle Cell Disease: No Hx Arthritis: No Hx Headaches / Migraines: No Hx Seizures: No Hx Kidney Stones: No Hx Psychiatric Treatment: No Hx Asthma: Yes Hx COPD: No Hx HIV: No Additional medical history: bronchitis, - Surgical History Past Surgical History?: Yes Hx Coronary Stent: Yes Additional Surgical History: R. ankle. tubal liagation - Social History Smoking Status: Current Every Day Smoker Substance Use Type: None - Medications Home Medications: Home Medications Medication Instructions Recorded Confirmed Last Taken Type AtorvaSTATin [Lipitor] 40 mg PO QHS #30 tablet 08/21/18 08/25/18 08/25/18 Rx Aspirin 325 mg PO DAILY 08/25/18 08/25/18 08/25/18 History Clopidogrel [Plavix] 75 mg PO DAILY 08/25/18 08/25/18 08/25/18 History ISOSORBIDE MONOnitrate [Imdur ER] 30 mg PO DAILY 08/25/18 08/25/18 08/25/18 History Losartan [Cozaar] 25 mg PO DAILY 08/25/18 08/25/18 08/25/18 History Metoprolol Xl [Metoprolol 50 mg PO DAILY 08/25/18 08/25/18 08/25/18 History SUCCINATE ER TAB] Pantoprazole [Protonix] 40 mg PO QDAY #30 tablet 08/27/18 Unknown Rx ED Physical Exam - General Limitations: No Limitations General appearance: alert, in no apparent distress - Head Head exam: Present: atraumatic, normocephalic - Eye Eye exam: Present: normal appearance, PERRL, EOMI - ENT ENT exam: Present: mucous membranes moist - Neck Neck exam: Present: normal inspection - Respiratory Respiratory exam: Present: rales. Absent: respiratory distress - Cardiovascular Cardiovascular Exam: Present: regular rate, normal rhythm. Absent: systolic m urmur, diastolic murmur, rubs, gallop - GI/Abdominal GI/Abdominal exam: Present: soft, normal bowel sounds. Absent: distended, tenderness - Extremities Exam Extremities exam: Present: normal inspection - Back Exam Back exam: Present: normal inspection - Neurological Exam Neurological exam: Present: alert, oriented X3, CN II-XII intact. Absent: motor sensory deficit - Psychiatric Psychiatric exam: Present: normal affect, normal mood - Skin Skin exam: Present: warm, dry, intact, normal color. Absent: rash ED Course Vital Signs 06/27/20 06/27/20 06/27/20 18:26 22:43 22:45 Temperature 98.4 F Pulse Rate 82 66 Respiratory 18 17 Rate Blood Pressure 154/86 127/70 O2 Sat by Pulse 96 99 99 Oximetry 06/27/20 06/27/20 06/27/20 23:00 23:15 23:30 Temperature Pulse Rate 64 60 59 L Respiratory 18 16 16 Rate Blood Pressure 136/78 136/78 131/68 O2 Sat by Pulse 100 100 100 Oximetry 06/27/20 23:45 Temperature Pulse Rate 59 L Respiratory 16 Rate Blood Pressure 130/74 O2 Sat by Pulse 97 Oximetry ED Medical Decision Making - Lab Data Result diagrams: 06/27/20 20:27 06/27/20 20:27 Lab Results 06/27/20 06/27/20 06/27/20 Range/Units 20:27 20:27 22:46 WBC 5.6 (4.5-11.0) K/mm3 RBC 4.86 (3.65-5.03) M/mm3 Hgb 13.9 (10.1-14.3) gm/dl Hct 41.2 (30.3-42.9) % MCV 85 (79-97) fl MCH 29 (28-32) pg MCHC 34 (30-34) % RDW 14.9 (13.2-15.2) % Plt Count 248 (140-440) K/mm3 Lymph % (Auto) 36.2 H (13.4-35.0) % [place] % (Auto) 10.1 H (0.0-7.3) % Eos % (Auto) 1.9 (0.0-4.3) % Baso % (Auto) 1.1 (0.0-1.8) % Lymph # 2.0 (1.2-5.4) K/mm3 [place] # 0.6 (0.0-0.8) K/mm3 Eos # 0.1 (0.0-0.4) K/mm3 Baso # 0.1 (0.0-0.1) K/mm3 Seg Neutrophils % 50.7 (40.0-70.0) % Seg Neutrophils # 2.8 (1.8-7.7) K/mm3 D-Dimer (0-234) ng/mlDDU Sodium 139 (137-145) mmol/L Potassium 4.3 (3.6-5.0) mmol/L Chloride 102.9 (98-107) mmol/L Carbon Dioxide 22 (22-30) mmol/L Anion Gap 18 mmol/L BUN 19 H (7-17) mg/dL Creatinine 0.6 (0.6-1.2) mg/dL Estimated GFR > 60 ml/min BUN/Creatinine Ratio 32 % Glucose 109 H (65-100) mg/dL Calcium 9.5 (8.4-10.2) mg/dL Total Bilirubin (0.1-1.2) mg/dL Direct Bilirubin (0-0.2) mg/dL Indirect Bilirubin mg/dL AST (5-40) units/L ALT (7-56) units/L Alkaline Phosphatase (35-129) units/L Troponin T < 0.010 < 0.010 (0.00-0.029) ng/mL NT-Pro-B Natriuret Pep (0-900) pg/mL Total Protein (6.3-8.2) g/dL Albumin (3.9-5) g/dL Albumin/Globulin Ratio % 06/27/20 06/27/20 06/28/20 Range/Units 23:20 23:55 01:21 WBC (4.5-11.0) K/mm3 RBC (3.65-5.03) M/mm3 Hgb (10.1-14.3) gm/dl Hct (30.3-42.9) % MCV (79-97) fl MCH (28-32) pg MCHC (30-34) % RDW (13.2-15.2) % Plt Count (140-440) K/mm3 Lymph % (Auto) (13.4-35.0) % [place] % (Auto) (0.0-7.3) % Eos % (Auto) (0.0-4.3) % Baso % (Auto) (0.0-1.8) % Lymph # (1.2-5.4) K/mm3 [place] # (0.0-0.8) K/mm3 Eos # (0.0-0.4) K/mm3 Baso # (0.0-0.1) K/mm3 Seg Neutrophils % (40.0-70.0) % Seg Neutrophils # (1.8-7.7) K/mm3 D-Dimer < 135.00 (0-234) ng/mlDDU Sodium (137-145) mmol/L Potassium (3.6-5.0) mmol/L Chloride (98-107) mmol/L Carbon Dioxide (22-30) mmol/L Anion Gap mmol/L BUN (7-17) mg/dL Creatinine (0.6-1.2) mg/dL Estimated GFR ml/min BUN/Creatinine Ratio % Glucose (65-100) mg/dL Calcium (8.4-10.2) mg/dL Total Bilirubin 0.50 (0.1-1.2) mg/dL Direct Bilirubin < 0.2 (0-0.2) mg/dL Indirect Bilirubin 0.3 mg/dL AST 14 (5-40) units/L ALT 20 (7-56) units/L Alkaline Phosphatase 67 (35-129) units/L Troponin T < 0.010 (0.00-0.029) ng/mL NT-Pro-B Natriuret Pep 32.24 (0-900) pg/mL Total Protein 7.4 (6.3-8.2) g/dL Albumin 4.5 (3.9-5) g/dL Albumin/Globulin Ratio 1.6 % - EKG Data -: EKG Interpreted by [facility] EKG shows normal: sinus rhythm Rate: tachycardia - Radiology Data Radiology results: report reviewed - Medical Decision Making Discussed results with patient Critical care attestation.: If time is entered above; I have spent that time in minutes in the direct care of this critically ill patient, excluding procedure time. ED Disposition Clinical Impression: Nonspecific chest pain Disposition: DC-01 TO HOME OR SELFCARE Is pt being admited?: No Does the pt Need Aspirin: No Condition: Stable Instructions: Chest Pain (ED) Additional Instructions: return if worse Referrals: [facility] [Other] - 3-5 Days TENISHA GALLARDO MD [Staff Physician] - 3-5 Days Time of Disposition: 02:33
[2020-06-28 00:16] LABS: Bilirubin,Direct < 0.2 mg/dL (0-0.2)
== END 2020-06-28 02:56 | disposition home or self-care (01) ==
LOC: ED 18:19
DX: R07.89 Other chest pain (principal); I25.2 Old myocardial infarction; K21.9 Gastro-esophageal reflux disease without esophagitis; I10 Essential (primary) hypertension; F17.200 Nicotine dependence, unspecified, uncomplicated; J45.909 Unspecified asthma, uncomplicated; Z98.51 Tubal ligation status; Z98.890 Other specified postprocedural states; Z79.82 Long term (current) use of aspirin; Z79.899 Other long term (current) drug therapy
CPT/HCPCS: 36415; 71046; 80048; 80076; 83880; 84484; 85025; 85379; 93005

== ENCOUNTER 2021-09-23 08:21 | Outpatient (CLI) | payer BC ==
--- NOTE | 2021-09-23 12:38 | Mammography Report ---
DIGITAL SCREENING MAMMOGRAM WITH CAD, 09/23/2021 CLINICAL INFORMATION / INDICATION: Routine screening mammography. TECHNIQUE: Digital bilateral 2D mammography was obtained in the craniocaudal and mediolateral obliqu e projections. This examination was interpreted with the benefit of Computer-Aided Detection analysis . COMPARISON: Prior mammogram 08/25/2018 FINDINGS: Breast Density: The breasts are heterogeneously dense, which may obscure small masses. No dominant mass, suspicious calcifications, or architectural distortion in either breast. There is stable benign-appearing nodularity seen in both breasts. There has been no significant tello e compared with the prior examination. IMPRESSION: No mammographic evidence of malignancy. Follow up recommendation: Routine yearly BI-RADS Category 2: Benign. A "normal" or negative report should not discourage follow up or biopsy of a clinically significant f inding. A written summary of these findings will be mailed to the patient. The patient will be entered into a mammography reporting system which will generate a reminder letter for the patient's next appointmen t at the appropriate interval. The [employer] recommends yearly mammograms starting at age 40 and continuing as l dylan as a woman is in good health. Breast MRI is recommended for women with an approximate 20-25% or greater lifetime risk of breast cancer, including women with a strong family history of breast or ova laquita cancer or who have been treated for Hodgkin's disease. Signer Name: Gwen Gonzalez MD Signed: 09/23/2021 12:33 PM Workstation Name: [id number]
== END 2021-09-23 08:22 | disposition home or self-care (01) ==
LOC: SPVWC 08:21
PROVIDERS: ATTEND Family Medicine
DX: Z12.31 Encounter for screening mammogram for malignant neoplasm of breast (principal); N64.89 Other specified disorders of breast
CPT/HCPCS: 77067

== ENCOUNTER 2021-12-15 06:30 | Observation (INO) | payer BC ==
[2021-12-15] MEDS ORDERED: ASPIRIN 325 MG TAB PO ONE (07:05)
[2021-12-15] MEDS ORDERED: NITROGLYCERIN 0.4 MG TAB SUBL SL ONE (07:05)
[2021-12-15] MEDS ORDERED: MORPHINE 2 MG/1 ML INJ IV ONE (07:06)
[2021-12-15] MEDS ORDERED: cloNIDine 0.2 MG TAB PO ONE (07:09)
[2021-12-15] MEDS ORDERED: ONDANSETRON 4 MG/2 ML INJ IV ONE (07:14)
--- NOTE | 2021-12-15 07:14 | XRay Report ---
XR chest routine 2V INDICATION / CLINICAL INFORMATION: chest pain. COMPARISON: 06/27/2020 FINDINGS: SUPPORT DEVICES: None. HEART /PULMONARY VASCULATURE: No significant abnormality. LUNGS / PLEURA: No significant pulmonary or pleural abnormality. No pneumothorax. ADDITIONAL FINDINGS: No significant additional findings. IMPRESSION: 1. No acute findings. Signer Name: Ajay Hernandez MD Signed: 12/15/2021 7:09 AM Workstation Name: [id number]
--- NOTE | 2021-12-15 07:48 | Emergency Department Report ---
ED Chest Pain HPI - General Chief Complaint: Chest Pain Stated Complaint: CHEST PAIN Time Seen by Provider: 12/15/21 07:04 Source: patient Mode of arrival: Ambulatory Limitations: No Limitations - History of Present Illness Initial Comments: This is a 56-year-old female nontoxic, well nourished in appearance, no acute signs of distress presents to the ED with c/o of left sided chest pain, nausea and radiation to left arm times several days. 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 Patient has history of cardiac. Patient describes pain as sharp, aching and heaviness to the chest. Patient denies any upper respiratory symptoms. Patient denies any shortness of breath, hemoptysis, fever, chills, nausea, vomiting, headache, stiff neck, numbness, tingling, abdominal pain. Patient denies pleuritic chest pain. Patient denies any recent travels or long car rides. Patient denies any recent surgeries or any sick contacts. Patient denies any drug allergies. The patient was evaluated in the emergency department for symptoms described in the history of present illness. He/she was evaluated in the context of the global COVID-19 pandemic, which necessitated consideration that the patient might be at risk for infection with the virus that causes COVID-19. Institu tional protocols and algorithms that pertain to the evaluation of patients at risk for COVID-19 are in a state of rapid change based on information released by regulatory bodies including the CDC and federal and state organizations. These policies and algorithms were followed during the patient's care in the emergency department. Please note that these policies, procedures and recommendations changed on a rapid basis. MD Complaint: chest pain -: days(s) Pain Location: left chest Pain Radiation: LUE Severity: mild Severity scale (0 -10): 8 Quality: heaviness, sharp Consistency: constant Improves With: nothing Worsens With: nothing re: nausea. denies: vomting, diaphoresis, dyspnea, sense of impending doom Other Symptoms: denies: cough, fever, syncope, rash, acid taste in mouth, leg swelling, palpitations, burping Treatments Prior to Arrival: none - Related Data Home Medications Medication Instructions Recorded Confirmed Last Taken Aspirin 325 mg PO DAILY 08/25/18 08/25/18 08/25/18 Clopidogrel [Plavix] 75 mg PO DAILY 08/25/18 08/25/18 08/25/18 ISOSORBIDE MONOnitrate [Imdur ER] 30 mg PO DAILY 08/25/18 08/25/18 08/25/18 Losartan [Cozaar] 25 mg PO DAILY 08/25/18 08/25/18 08/25/18 Metoprolol Xl [Metoprolol 50 mg PO DAILY 08/25/18 08/25/18 08/25/18 SUCCINATE ER TAB] Previous Rx's Medication Instructions Recorded Last Taken Type AtorvaSTATin [Lipitor] 40 mg PO QHS #30 tablet 08/21/18 08/25/18 Rx Pantoprazole [Protonix] 40 mg PO QDAY #30 tablet 08/27/18 Unknown Rx Allergies Allergy/AdvReac Type Severity Reaction Status Date / Time No Known Allergies Allergy Verified 08/25/18 18:25 Heart Score - HEART Score History: Highly suspicious EKG: Normal Age: 45-65 Risk factors: > 3 risk factors or hx of atherosclerotic disease Troponin: < normal limit HEART Score: 5 - EKG Read Time Time EKG Completed: 06:40 EKG Read Time: 06:47 - Critical Actions Critical Actions: 4-6 pts:12-16.6% risk of adverse cardiac event. Should be admitted ED Review of Systems ROS: Stated complaint: CHEST PAIN Other details as noted in HPI Constitutional: denies: chills, fever Eyes: denies: eye pain, eye discharge, vision change ENT: denies: ear pain, throat pain Respiratory: denies: cough, shortness of breath, wheezing Cardiovascular: chest pain. denies: palpitations, dyspnea on exertion, orthopnea, edema, syncope, paroxysmal nocturnal dyspnea Endocrine: no symptoms reported Gastrointestinal: nausea. denies: abdominal pain, vomiting, diarrhea Genitourinary: denies: urgency, dysuria, discharge Musculoskeletal: denies: back pain, joint swelling, arthralgia Skin: denies: rash, lesions Neurological: denies: headache, weakness, paresthesias Psychiatric: denies: anxiety, depression Hematological/Lymphatic: denies: easy bleeding, easy bruising ED Past Medical Hx - Past Medical History Previous Medical History?: Yes Hx Hypertension: Yes Hx CVA: No Hx Heart Attack/AMI: Yes Hx Congestive Heart Failure: No Hx Diabetes: No Hx Deep Vein Thrombosis: No Hx Pulmonary Embolism: No Hx GERD: Yes Hx Liver Disease: No Hx Renal Disease: No Hx Sickle Cell Disease: No Hx Arthritis: No Hx Headaches / Migraines: No Hx Seizures: No Hx Kidney Stones: No Hx Psychiatric Treatment: No Hx Asthma: Yes Hx COPD: No Hx HIV: No Additional medical history: bronchitis, - Surgical History Past Surgical History?: Yes Hx Coronary Stent: Yes Additional Surgical History: R. ankle. tubal liagation - Social History Smoking Status: Current Every Day Smoker Substance Use Type: None - Medications Home Medications: Home Medications Medication Instructions Recorded Confirmed Last Taken Type AtorvaSTATin [Lipitor] 40 mg PO QHS #30 tablet 08/21/18 08/25/18 08/25/18 Rx Aspirin 325 mg PO DAILY 08/25/18 08/25/18 08/25/18 History Clopidogrel [Plavix] 75 mg PO DAILY 08/25/18 08/25/18 08/25/18 History ISOSORBIDE MONOnitrate [Imdur ER] 30 mg PO DAILY 08/25/18 08/25/18 08/25/18 History Losartan [Cozaar] 25 mg PO DAILY 08/25/18 08/25/18 08/25/18 History Metoprolol Xl [Metoprolol 50 mg PO DAILY 08/25/18 08/25/18 08/25/18 History SUCCINATE ER TAB] Pantoprazole [Protonix] 40 mg PO QDAY #30 tablet 08/27/18 Unknown Rx ED Physical Exam - General Limitations: No Limitations General appearance: alert, in no apparent distress - Head Head exam: Present: atraumatic, normocephalic - Eye Eye exam: Present: normal appearance - ENT ENT exam: Present: normal exam - Neck Neck exam: Present: normal inspection, full ROM. Absent: lymphadenopathy - Respiratory Respiratory exam: Present: normal lung sounds bilaterally. Absent: respiratory distress, wheezes, rales, rhonchi, stridor, chest wall tenderness, accessory muscle use, decreased breath sounds, prolonged expiratory - Cardiovascular Cardiovascular Exam: Present: regular rate, normal rhythm, normal heart sounds. Absent: bradycardia, tachycardia, irregular rhythm, systolic murmur, diastolic murmur, rubs, gallop - GI/Abdominal GI/Abdominal exam: Present: soft, normal bowel sounds. Absent: distended, ten derness, guarding, rebound, rigid - Extremities Exam Extremities exam: Present: normal inspection, full ROM, normal capillary refill. Absent: tenderness - Back Exam Back exam: Present: normal inspection, full ROM. Absent: tenderness, CVA tenderness (R), CVA tenderness (L), muscle spasm, paraspinal tenderness, vertebral tenderness, rash noted - Neurological Exam Neurological exam: Present: alert, oriented X3, normal gait - Psychiatric Psychiatric exam: Present: normal affect, normal mood - Skin Skin exam: Present: warm, dry, intact, normal color. Absent: rash ED Course Vital Signs 12/15/21 06:35 Temperature 97.9 F Pulse Rate 89 Respiratory 18 Rate Blood Pressure 219/113 O2 Sat by Pulse 99 Oximetry - Reevaluation(s) Reevaluation #1: 12/15/21 07:47 Patient is speaking in full sentences with no signs of distress noted. - Consultations Consultation #1: 12/15/21 07:44 Patient has been consulted with Dr. Aden about patient history, physical exam, and EKG and agrees to ED plan of care. Consultation #2: 12/15/21 08:06 Patient has been consulted with Dr. Umaña ([place] strategic communications specialist) about patient history, physical exam, and EKG and agrees for admission. Consultation #3: 12/15/21 08:31 Patient has been consulted with Dr. Hobbs (hospitalist) about patient history, physical exam, and labs/imaging results and accepts patient to services. ERICK score - Erick Score Age > 65: (0) No Aspirin use within the Past 7 Days: (1) Yes 3 or more CAD Risk Factors: (1) Yes 2 or more Angina events in past 24 hrs: (0) No Known CAD with more than 50% Stenosis: (1) Yes Elevated Cardiac Markers: (1) Yes ST Deviation Greater than 0.5mm: (0) No ERICK Score: 4 ED Medical Decision Making - Lab Data Result diagrams: 12/15/21 07:35 12/15/21 07:35 Lab Results 12/15/21 12/15/21 12/15/21 Range/Units 07:35 07:35 07:35 WBC 3.6 L (4.5-11.0) K/mm3 RBC 4.75 (3.65-5.03) M/mm3 Hgb 13.7 (10.1-14.3) gm/dl Hct 39.7 (30.3-42.9) % MCV 84 (79-97) fl MCH 29 (28-32) pg MCHC 35 H (30-34) % RDW 14.1 (13.2-15.2) % Plt Count 204 (140-440) K/mm3 Lymph % (Auto) 37.5 H (13.4-35.0) % Guthrie % (Auto) 8.6 H (0.0-7.3) % Eos % (Auto) 2.6 (0.0-4.3) % Baso % (Auto) 0.9 (0.0-1.8) % Lymph # (Auto) 1.4 (1.2-5.4) K/mm3 Guthrie # (Auto) 0.3 (0.0-0.8) K/mm3 Eos # (Auto) 0.1 (0.0-0.4) K/mm3 Baso # (Auto) 0.0 (0.0-0.1) K/mm3 Seg Neutrophils % 50.4 (40.0-70.0) % Seg Neutrophils # 1.8 (1.8-7.7) K/mm3 PT 13.3 (12.2-14.9) Sec. INR 0.91 (0.87-1.13) APTT 32.9 (24.2-36.6) Sec. Sodium 141 (137-145) mmol/L Potassium 3.9 (3.6-5.0) mmol/L Chloride 104.8 (98-107) mmol/L Carbon Dioxide 22 (22-30) mmol/L Anion Gap 18 mmol/L BUN 8 (7-17) mg/dL Creatinine 0.6 (0.6-1.2) mg/dL Estimated GFR > 60 ml/min BUN/Creatinine Ratio 13 % Glucose 102 H (65-100) mg/dL Calcium 9.1 (8.4-10.2) mg/dL Total Bilirubin 0.80 (0.1-1.2) mg/dL AST 14 (5-40) units/L ALT 27 (7-56) units/L Alkaline Phosphatase 79 (35-129) units/L Troponin T < 0.010 (0.00-0.029) ng/mL Total Protein 6.9 (6.3-8.2) g/dL Albumin 4.1 (3.9-5) g/dL Albumin/Globulin Ratio 1.5 % - EKG Data 12/15/21 08:32 Normal sinus rhythm at [address] or T wave abnormalities. Reviewed and signed by . - Radiology Data [facility] [address] [place] [address] XRay Report Signed Patient: KIRSTIE SEGURA MR#: [id number] : 1965 Acct:[id number] Age/Sex: 56 / F ADM Date: 12/15/21 Loc: ED Attending Dr: Ordering Physician: AVE ADEN MD Date of Service: 12/15/21 Procedure(s): XR chest routine 2V Accession Number(s): [id number] cc: AVE ADEN MD Fluoro Time In Minutes: XR chest routine 2V INDICATION / CLINICAL INFORMATION: chest pain. COMPARISON: 06/27/2020 FINDINGS: SUPPORT DEVICES: None. HEART /PULMONARY VASCULATURE: No significant abnormality. LUNGS / PLEURA: No significant pulmonary or pleural abnormality. No pneumothorax. ADDITIONAL FINDINGS: No significant additional findings. IMPRESSION: 1. No acute findings. Signer Name: Paige Hernandez MD Signed: 12/15/2021 7:09 AM Workstation Name: [id number] Transcribed By: Dictated By: PAIGE HERNANDEZ MD Electronically Authenticated By: PAIGE HERNANDEZ MD Signed Date/Time: 12/15/21708 DD/ 8 TD/TT: - Medical Decision Making 56-year-old female that presents with chest pain. Patient is stable and was examined by me. Patient admitted with hospitalist for further evaluation and treatment. [employer] Automation Architect to see patient and was consulted with. At time of admission, the patient does not seem toxic or ill in appearance. No acute signs of distress noted. Patient agrees to admission treatment plan of care. No further questions noted by the patient. Critical care attestation.: If time is entered above; I have spent that time in minutes in the direct care of this critically ill patient, excluding procedure time. ED Disposition Clinical Impression: Hypertensive urgency Chest pain Qualifiers: Chest pain type: unspecified Qualified Code(s): R07.9 - Chest pain, unspecified Disposition: 09 ADMITTED INPATIENT Is pt being admited?: Yes Condition: Stable Time of Disposition: 08:33
[2021-12-15 08:07] LABS: INR 0.91 (0.87-1.13)
[2021-12-15 08:08] LABS: Partial Thromboplastin Time 32.9 Sec. (24.2-36.6)
[2021-12-15 08:12] LABS: Basophils % (Auto) 0.9 % (0.0-1.8); Eosinophils # (Auto) 0.1 K/mm3 (0.0-0.4); Eosinophils % (Auto) 2.6 % (0.0-4.3); Hematocrit 39.7 % (30.3-42.9); Hemoglobin 13.7 gm/dl (10.1-14.3); Lymphocytes # (Auto) 1.4 K/mm3 (1.2-5.4); Lymphocytes % (Auto) 37.5 % (13.4-35.0); Mean Corpuscular HGB Conc 35 % (30-34); Mean Corpuscular Volume 84 fl (79-97); Monocytes # (Auto) 0.3 K/mm3 (0.0-0.8); Monocytes % (Auto) 8.6 % (0.0-7.3); Platelet Count 204 K/mm3 (140-440); Red Blood Count 4.75 M/mm3 (3.65-5.03); Red Cell Distribution Width 14.1 % (13.2-15.2)
[2021-12-15 08:23] LABS: Alanine Aminotransferase 27 units/L (7-56); Albumin 4.1 g/dL (3.9-5); Blood Urea Nitrogen 8 mg/dL (7-17); Calcium 9.1 mg/dL (8.4-10.2); Hemolysis Index 6
[2021-12-15 08:24] LABS: BUN/Creatinine Ratio 13
--- NOTE | 2021-12-15 08:56 | History and Physical Report ---
History of Present Illness Date of examination: 12/15/21 Date of admission: 12/15/21 Chief complaint: Chest pain History of present illness: 56-year-old female with past medical history of hypertension, morbid obesity, hyperlipidemia, tobacco abuse and coronary artery disease s/p coronary stenting July 2018 who presents to the emergency department with complaints of chest pain. Patient with previous history of PCI of mid LAD and distal circumflex using BMS in July 2018. The patient complains of left sided chest pain described as a sharp, aching and heaviness to the anterior chest, nausea and radiation to left arm times several days. No reports of shortness of breath or diaphoresis. Patient stated last seen document management specialist was last month but has not had a echocardiogram or stress test the past year. Past History Past Medical History: CAD, hypertension, hyperlipidemia Past Surgical History: Other (History of PCI and stents) Social history: smoking Family history: no significant family history Medications and Allergies Allergies Allergy/AdvReac Type Severity Reaction Status Date / Time No Known Allergies Allergy Verified 08/25/18 18:25 Home Medications Medication Instructions Recorded Confirmed Last Taken Type AtorvaSTATin [Lipitor] 40 mg PO QHS #30 tablet 08/21/18 08/25/18 08/25/18 Rx Aspirin 325 mg PO DAILY 08/25/18 08/25/18 08/25/18 History Clopidogrel [Plavix] 75 mg PO DAILY 08/25/18 08/25/18 08/25/18 History ISOSORBIDE MONOnitrate [Imdur ER] 30 mg PO DAILY 08/25/18 08/25/18 08/25/18 History Losartan [Cozaar] 25 mg PO DAILY 08/25/18 08/25/18 08/25/18 History Metoprolol Xl [Metoprolol 50 mg PO DAILY 08/25/18 08/25/18 08/25/18 History SUCCINATE ER TAB] Pantoprazole [Protonix] 40 mg PO QDAY #30 tablet 08/27/18 Unknown Rx Review of Systems All systems: negative Exam - Constitutional Vitals: Temp Pulse Resp BP Pulse Ox 97.9 F 89 18 219/113 99 12/15/21 06:35 12/15/21 06:35 12/15/21 06:35 12/15/21 06:35 12/15/21 06:35 General appearance: Present: no acute distress, well-nourished - EENT Eyes: Present: PERRL ENT: hearing intact, clear oral mucosa - Neck Neck: Present: supple, normal ROM - Respiratory Respiratory effort: normal Respiratory: bilateral: CTA - Cardiovascular Heart Sounds: Present: S1 & S2. Absent: rub, click - Extremities Extremities: pulses symmetrical, No edema Peripheral Pulses: within normal limits - Abdominal General gastrointestinal: Present: soft, non-tender, non-distended, normal bowel sounds Female genitourinary: Present: normal - Integumentary Integumentary: Present: clear, warm, dry - Musculoskeletal Musculoskeletal: gait normal, strength equal bilaterally - Psychiatric Psychiatric: appropriate mood/affect, intact judgment & insight - Neurologic Neurologic: CNII-XII intact, moves all extremities HEART Score - HEART Score EKG: Normal Age: 45-65 Risk factors: > 3 risk factors or hx of atherosclerotic disease Troponin: Troponin T < 0.010 ng/mL (0.00-0.029) 12/15/21 07:35 Troponin: < normal limit - Critical Actions Critical Actions: 4-6 pts:12-16.6% risk of adverse cardiac event. Should be admi tted Results - Labs CBC & Chem 7: 12/15/21 07:35 12/15/21 07:35 Labs: Laboratory Last Values WBC 3.6 K/mm3 (4.5-11.0) L 12/15/21 07:35 RBC 4.75 M/mm3 (3.65-5.03) 12/15/21 07:35 Hgb 13.7 gm/dl (10.1-14.3) 12/15/21 07:35 Hct 39.7 % (30.3-42.9) 12/15/21 07:35 MCV 84 fl (79-97) 12/15/21 07:35 MCH 29 pg (28-32) 12/15/21 07:35 MCHC 35 % (30-34) H 12/15/21 07:35 RDW 14.1 % (13.2-15.2) 12/15/21 07:35 Plt Count 204 K/mm3 (140-440) 12/15/21 07:35 Lymph % (Auto) 37.5 % (13.4-35.0) H 12/15/21 07:35 Travis % (Auto) 8.6 % (0.0-7.3) H 12/15/21 07:35 Eos % (Auto) 2.6 % (0.0-4.3) 12/15/21 07:35 Baso % (Auto) 0.9 % (0.0-1.8) 12/15/21 07:35 Lymph # (Auto) 1.4 K/mm3 (1.2-5.4) 12/15/21 07:35 Travis # (Auto) 0.3 K/mm3 (0.0-0.8) 12/15/21 07:35 Eos # (Auto) 0.1 K/mm3 (0.0-0.4) 12/15/21 07:35 Baso # (Auto) 0.0 K/mm3 (0.0-0.1) 12/15/21 07:35 Seg Neutrophils % 50.4 % (40.0-70.0) 12/15/21 07:35 Seg Neutrophils # 1.8 K/mm3 (1.8-7.7) 12/15/21 07:35 PT 13.3 Sec. (12.2-14.9) 12/15/21 07:35 INR 0.91 (0.87-1.13) 12/15/21 07:35 APTT 32.9 Sec. (24.2-36.6) 12/15/21 07:35 Sodium 141 mmol/L (137-145) 12/15/21 07:35 Potassium 3.9 mmol/L (3.6-5.0) 12/15/21 07:35 Chloride 104.8 mmol/L (98-107) 12/15/21 07:35 Carbon Dioxide 22 mmol/L (22-30) 12/15/21 07:35 Anion Gap 18 mmol/L 12/15/21 07:35 BUN 8 mg/dL (7-17) 12/15/21 07:35 Creatinine 0.6 mg/dL (0.6-1.2) 12/15/21 07:35 Estimated GFR > 60 ml/min 12/15/21 07:35 BUN/Creatinine Ratio 13 % 12/15/21 07:35 Glucose 102 mg/dL (65-100) H 12/15/21 07:35 Calcium 9.1 mg/dL (8.4-10.2) 12/15/21 07:35 Total Bilirubin 0.80 mg/dL (0.1-1.2) 12/15/21 07:35 AST 14 units/L (5-40) 12/15/21 07:35 ALT 27 units/L (7-56) 12/15/21 07:35 Alkaline Phosphatase 79 units/L (35-129) 12/15/21 07:35 Troponin T < 0.010 ng/mL (0.00-0.029) 12/15/21 07:35 Total Protein 6.9 g/dL (6.3-8.2) 12/15/21 07:35 Albumin 4.1 g/dL (3.9-5) 12/15/21 07:35 Albumin/Globulin Ratio 1.5 % 12/15/21 07:35 Assessment and Plan Assessment and plan: Chest pain. History of coronary artery disease. Hypertension Hyperlipidemia Morbid obesity 12/15/2021. The patient will be admitted to the hospital and placed on the chest pain pathway. We will monitor on telemetry and follow serial EKGs and troponins. Initial troponin was found to be negative. We will follow-up echoc ardiogram and ischemic evaluation per cardiology recommendations. Cardiology consultation
[2021-12-15] MEDS ORDERED: ONDANSETRON 4 MG/2 ML INJ IV PRN ×2 (09:06→09:08)
[2021-12-15] MEDS ORDERED: HYDROcodone/ACETAMINOPHEN 5-325 MG TAB PO PRN ×2 (09:06→09:08)
[2021-12-15] MEDS ORDERED: MORPHINE 4 MG/1 ML INJ IV PRN ×2 (09:06→09:08)
[2021-12-15] MEDS ORDERED: ACETAMINOPHEN 325 MG TAB PO PRN ×2 (09:06→09:08)
--- NOTE | 2021-12-15 09:40 | Consultation ---
History of Present Illness Consult date: 12/15/21 Consult reason: chest pain History of present illness: 56-year-old -Turkmen female presenting to [facility] emergency room for the evaluation of chest pain and hypertensive urgency. Patient describes left shoulder pain radiating down the left arm. Pain is constant and is worse upon laying down. Her chest pain however is described as sharp and lasting only seconds in duration. Chest pain is nonexertional. She does however report chronic and stable shortness of breath with moderate exertion. Blood pressure upon admission was noted to be elevated 219/113 despite compliance with medical therapy. Patient is known to have coronary artery disease status post PCI to the LAD and the left circumflex artery. Cath in 2017 revealed patent LAD and patent circumflex artery stent with mild to moderate nonobstructive right coronary artery disease. A stress test performed September 2020 showed normal perfusion scan. An echo performed July 2019 showed normal left ventricular ejection fraction. EKG this admission is noted to be within normal limits. Troponin is negative thus far. Chest x-ray is also showing no acute process. Patient states that her primary strategic intelligence officer was planning a stress test in January. Past History Past Medical History: CAD, hypertension, hyperlipidemia Past Surgical History: Other (History of PCI and stents) Social history: smoking Family history: no significant family history Medications and Allergies Allergies Allergy/AdvReac Type Severity Reaction Status Date / Time No Known Allergies Allergy Verified 08/25/18 18:25 Home Medications Medication Instructions Recorded Confirmed Last Taken Type AtorvaSTATin [Lipitor] 40 mg PO QHS #30 tablet 08/21/18 08/25/18 08/25/18 Rx Aspirin 325 mg PO DAILY 08/25/18 08/25/18 08/25/18 History Clopidogrel [Plavix] 75 mg PO DAILY 08/25/18 08/25/18 08/25/18 History ISOSORBIDE MONOnitrate [Imdur ER] 30 mg PO DAILY 08/25/18 08/25/18 08/25/18 History Losartan [Cozaar] 25 mg PO DAILY 08/25/18 08/25/18 08/25/18 History Metoprolol Xl [Metoprolol 50 mg PO DAILY 08/25/18 08/25/18 08/25/18 History SUCCINATE ER TAB] Pantoprazole [Protonix] 40 mg PO QDAY #30 tablet 08/27/18 Unknown Rx Active Meds: Active Medications Acetaminophen (Acetaminophen 325 Mg Tab) 650 mg PO Q4H PRN PRN Reason: Pain MILD(1-3)/Fever >100.5/BLUE Hydrocodone Bitart/Acetaminophen (Hydrocodone/Acetaminophen 5-325 Mg Tab) 2 each PO Q6H PRN PRN Reason: Pain, Moderate (4-6) Aspirin (Aspirin 325 Mg Tab) 325 mg PO DAILY [facility] Atorvastatin Calcium (Atorvastatin 40 Mg Tab) 40 mg PO QHS [facility] Clopidogrel Bisulfate (Clopidogrel 75 Mg Tab) 75 mg PO DAILY [facility] Heparin Sodium (Porcine) (Heparin 5,000 Unit/1 Ml Vial) 5,000 unit SUB-Q Q8HR [facility] Isosorbide Mononitrate (Isosorbide Mononitrate Er 30 Mg Tab) 30 mg PO DAILY [facility] Losartan Potassium (Losartan 25 Mg Tab) 25 mg PO DAILY [facility] Metoprolol Succinate (Metoprolol Succinate Xl 50 Mg Tab) 50 mg PO DAILY [facility] Morphine Sulfate (Morphine 4 Mg/1 Ml Inj) 2 mg IV Q4H PRN PRN Reason: Pain , Severe (7-10) Ondansetron HCl (Ondansetron 4 Mg/2 Ml Inj) 4 mg IV Q8H PRN PRN Reason: Nausea And Vomiting Pantoprazole Sodium (Pantoprazole 40 Mg Tab) 40 mg PO QDAY [facility] Sodium Chloride (Sodium Chloride 0.9% 10 Ml Flush Syringe) 10 ml IV PRN PRN PRN Reason: LINE FLUSH Sodium Chloride (Sodium Chloride 0.9% 10 Ml Flush Syringe) 10 ml IV BID [facility] Review of Systems All systems: negative Physical Examination Vital Signs Temp Pulse Resp BP Pulse Ox 97.9 F 89 18 219/113 99 12/15/21 06:35 12/15/21 06:35 12/15/21 06:35 12/15/21 06:35 12/15/21 06:35 General appearance: no acute distress Neck: Positive: neck supple Cardiac: Positive: Reg Rate and Rhythm Lungs: Positive: Normal Exam Neuro: Positive: Grossly Intact Abdomen: Positive: Soft Extremities: Absent: edema Results 12/15/21 07:35 12/15/21 07:35 Cardiac Enzymes 12/15/21 Range/Units 07:35 AST 14 (5-40) units/L Coagulation 12/15/21 Range/Units 07:35 PT 13.3 (12.2-14.9) Sec. INR 0.91 (0.87-1.13) APTT 32.9 (24.2-36.6) Sec. CBC 12/15/21 Range/Units 07:35 WBC 3.6 L (4.5-11.0) K/mm3 RBC 4.75 (3.65-5.03) M/mm3 Hgb 13.7 (10.1-14.3) gm/dl Hct 39.7 (30.3-42.9) % Plt Count 204 (140-440) K/mm3 Lymph # (Auto) 1.4 (1.2-5.4) K/mm3 Moffat # (Auto) 0.3 (0.0-0.8) K/mm3 Eos # (Auto) 0.1 (0.0-0.4) K/mm3 Baso # (Auto) 0.0 (0.0-0.1) K/mm3 Comprehensive Metabolic Panel 12/15/21 Range/Units 07:35 Sodium 141 (137-145) mmol/L Potassium 3.9 (3.6-5.0) mmol/L Chloride 104.8 (98-107) mmol/L Carbon Dioxide 22 (22-30) mmol/L BUN 8 (7-17) mg/dL Creatinine 0.6 (0.6-1.2) mg/dL Glucose 102 H (65-100) mg/dL Calcium 9.1 (8.4-10.2) mg/dL AST 14 (5-40) units/L ALT 27 (7-56) units/L Alkaline Phosphatase 79 (35-129) units/L Total Protein 6.9 (6.3-8.2) g/dL Albumin 4.1 (3.9-5) g/dL - EKG Interpretation EKG: sinus rhythm EKG interpretations - Telemetry EKG Rhythm: Sinus Rhythm Assessment and Plan Noncardiac chest pain Suspect left shoulder pathology EKG showing no ischemic changes Troponin is negative thus far. Hypertensive urgency Patient on valsartan 80 mg twice daily, metoprolol XL 100 mg daily, and isosorbide mononitrate 20 mg daily at home Coronary artery disease status post PCI to the LAD and the circumflex artery Patient continues to be on aspirin and Plavix as outpatient Patient also on atorvastatin 40 mg as outpatient Cath in 2018 revealed patent LAD and circumflex artery stent with mild to moderate nonobstructive coronary artery disease in the right coronary artery Stress test September 2020 showed normal perfusion scan Echo July 2019 showed normal left ventricular ejection fraction Recommendations: Resume home antihypertensive therapy. Increase valsartan to 160 mg twice daily Proceed with myocardial perfusion imaging scan in a.m. Proceed with x-ray to the left shoulder.
[2021-12-15] MEDS ORDERED: METOPROLOL SUCCINATE XL 50 MG TAB PO SCH (10:00)
[2021-12-15] MEDS ORDERED: LOSARTAN 25 MG TAB PO SCH (10:00)
--- NOTE | 2021-12-15 10:20 | XRay Report ---
LEFT SHOULDER 3 VIEWS INDICATION / CLINICAL INFORMATION: LEFT SHOULDER PAIN COMPARISON: None available. FINDINGS: BONES / JOINT(S): No acute fracture or subluxation. No significant arthritis. SOFT TISSUES: No significant abnormality. ADDITIONAL FINDINGS: None. Signer Name: Jez Sevilla MD Signed: 12/15/2021 10:16 AM Workstation Name: [id number]
[2021-12-15] MEDS: ASPIRIN 325 MG TAB PO SCH (10:49)
[2021-12-15] MEDS: PANTOPRAZOLE 40 MG TAB PO SCH (10:49)
[2021-12-15] MEDS: METOPROLOL SUCCINATE XL 100 MG TAB PO SCH (10:49)
[2021-12-15] MEDS: VALSARTAN 160MG TAB PO SCH ×2 (10:49→21:27)
[2021-12-15] MEDS: CLOPIDOGREL 75 MG TAB PO SCH (10:49)
[2021-12-15 12:00] LABS: Bilirubin,Urine NEG (Negative); Blood,Urine NEG (Negative); Color,Urine Yellow (Yellow); Mucus,Urine FEW /HPF; Protein,Urine <15 mg/dL mg/dL (Negative); RBC,Urine < 1.0 /HPF (0.0-6.0); Urobilinogen,Urine < 2.0 mg/dL (<2.0)
[2021-12-15] MEDS: HEPARIN 5,000 UNIT/1 ML VIAL SUB-Q SCH ×2 (14:08→21:26)
[2021-12-16] MEDS: HEPARIN 5,000 UNIT/1 ML VIAL SUB-Q SCH (06:20)
[2021-12-16 07:41] LABS: Basophils # (Auto) 0.1 K/mm3 (0.0-0.1); Basophils % (Auto) 1.5 % (0.0-1.8); Eosinophils # (Auto) 0.1 K/mm3 (0.0-0.4); Eosinophils % (Auto) 1.8 % (0.0-4.3); Hematocrit 38.7 % (30.3-42.9); Hemoglobin 13.3 gm/dl (10.1-14.3); Lymphocytes # (Auto) 1.8 K/mm3 (1.2-5.4); Lymphocytes % (Auto) 47.6 % (13.4-35.0); Mean Corpuscular HGB Conc 34 % (30-34); Mean Corpuscular Volume 83 fl (79-97); Monocytes # (Auto) 0.3 K/mm3 (0.0-0.8); Monocytes % (Auto) 8.9 % (0.0-7.3); Platelet Count 199 K/mm3 (140-440); Red Blood Count 4.64 M/mm3 (3.65-5.03); Red Cell Distribution Width 13.9 % (13.2-15.2)
--- NOTE | 2021-12-16 07:51 | Discharge Summary ---
Providers - Providers Date of Admission: 12/15/21 09:08 Date of discharge: 12/16/21 Attending physician: GUILLERMO MEDINA 12/15/21 Consult to Cardiac Rehabilitation [CONS] Routine Reason For Exam: Phase 1 12/15/21 08:07 Consult to Cardiology [CONS] Urgent Consulting Provider: LINDA HERNANDEZ Reason For Exam: CP 12/15/21 09:08 Consult to Cardiology [CONS] Routine Consulting Provider: LINDA HERNANDEZ Reason For Exam: cp Primary care physician: GLOBE TESTER Hospitalization Reason for admission: cp Condition: Stable Hospital course: 56-year-old -[place] female presenting to [facility] emergency room for the evaluation of chest pain and hypertensive urgency. Patient described left shoulder pain radiating down the left arm. Pain was constant and worse upon laying down. Her chest pain however is described as sharp and lasting only seconds in duration. Chest pain was nonexertional. She does however report chronic and stable shortness of breath with moderate exertion. Blood pressure upon admission was noted to be elevated 219/113 despite compliance with medical therapy. Patient is known to have coronary artery disease status post PCI to the LAD and the left circumflex artery. Cath in 2017 revealed patent LAD and patent circumflex artery stent with mild to moderate nonobstructive right coronary artery disease. A stress test performed September 2020 showed normal perfusion scan. An echo performed July 2019 showed normal left ventricular ejection fraction. EKG this admission is noted to be within normal limits. Troponin is negative. Chest x-ray with also no acute process. 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 The patient was admitted with diagnosis of noncardiac chest pain, accelerated hypertension/hypertensive urgency and coronary artery disease. Cardiology saw the patient in consultation and recommended myocardial perfusion scan and shoulder x-ray. The shoulder x-ray was found to be negative. Myocardial perfusion scan will be completed this morning and if negative patient will discharge home. Patient also had valsartan increased for accelerated hypertension. Blood pressure stabilized. Dedicated discharge time 32 minutes Disposition: 01 HOME / SELF CARE / HOMELESS Final Discharge Diagnosis (Prints w/discharge instructions): Noncardiac chest pain, left shoulder pain, coronary artery disease, accelerated hypertension /hypertensive urgency Core Measure Documentation - Palliative Care Palliative Care/ Comfort Measures: Not Applicable - Core Measures Any of the following diagnoses?: none Exam - Constitutional Vitals: Temp Pulse Resp BP Pulse Ox 97.9 F 63 16 102/36 95 12/16/21 03:30 12/16/21 03:30 12/16/21 05:53 12/16/21 03:30 12/16/21 05:53 General appearance: Present: no acute distress, well-nourished - EENT Eyes: Present: PERRL ENT: hearing intact, clear oral mucosa - Neck Neck: Present: supple, normal ROM - Respiratory Respiratory effort: normal Respiratory: bilateral: CTA - Cardiovascular Heart Sounds: Present: S1 & S2. Absent: rub, click - Extremities Extremities: pulses symmetrical, No edema Peripheral Pulses: within normal limits - Abdominal General gastrointestinal: Present: soft, non-tender, non-distended, normal bowel sounds Female genitourinary: Present: normal - Integumentary Integumentary: Present: clear, warm, dry - Musculoskeletal Musculoskeletal: gait normal, strength equal bilaterally - Psychiatric Psychiatric: appropriate mood/affect, intact judgment & insight - Neurologic Neurologic: CNII-XII intact, moves all extremities Plan Activity: advance as tolerated Weight Bearing Status: Weight Bear as Tolerated Diet: low fat, low cholesterol, low salt Follow up with: PRIMARY CARE, [Primary Care Provider] - 3-5 Days LINDA HERNANDEZ MD [Staff Physician] - 7 Days Prescriptions: Aspirin 325 mg PO DAILY #30 tablet Valsartan [Diovan] 160 mg PO Q12H #60 tablet ISOSORBIDE MONOnitrate [Imdur ER] 30 mg PO DAILY #30 tab AtorvaSTATin [Lipitor] 40 mg PO QHS #30 tablet Metoprolol Xl [Metoprolol SUCCINATE ER TAB] 100 mg PO QDAY #30 tablet Clopidogrel [Plavix] 75 mg PO DAILY #30 tab Pantoprazole [Protonix TAB] 40 mg PO QDAY #30 tablet
[2021-12-16 08:00] LABS: Blood Urea Nitrogen 12 mg/dL (7-17); Calcium 9.3 mg/dL (8.4-10.2); Hemolysis Index 23
[2021-12-16 08:08] LABS: BUN/Creatinine Ratio 20
[2021-12-16] MEDS ORDERED: REGADENOSON 0.4 MG/5 ML INJ IV ONE (09:06)
[2021-12-16] MEDS: ASPIRIN 325 MG TAB PO SCH (10:39)
[2021-12-16] MEDS: CLOPIDOGREL 75 MG TAB PO SCH (10:39)
[2021-12-16] MEDS: PANTOPRAZOLE 40 MG TAB PO SCH (10:39)
[2021-12-16] MEDS: METOPROLOL SUCCINATE XL 100 MG TAB PO SCH (10:39)
[2021-12-16] MEDS: VALSARTAN 160MG TAB PO SCH (10:41)
--- NOTE | 2021-12-16 10:51 | Nuclear Medicine Report ---
APPROVED REPORT Exam: Nuclear Stress Test Indication: Chest pain BMI: 0 Stress Test Details HR Max Heart Rate (APMHR): 165 bpm Target HR (85% APMHR): 140 bpm BP ECG Resting ECG: Sinus Rhythm Stress ECG: Sinus Rhythm ST Change: None Arrhythmia: None Recovery ECG: Sinus Rhythm Recovery ST Change: None Recovery Arrhythmia: None Clinical Reason for Termination: Maximal effort Stress Symptoms: None Exercise duration: 6 min sec Exercise capacity: 7 METs Overall Exercise Capacity for Age: Average Stress ECG Conclusion No chest pain, no ST changes of ischemia with exercise testing to 7 METS. Myocardial perfusion images are pending. NM EXAM: Myocardial Perfusion REST/STRESS Imaging Protocol: Rest Tc-99m/Stress Tc-99m 1 day Resting Data Rest SPECT myocardial perfusion imaging was performed in supine position 45 minutes following the intravenous injection of 10 mCi of Tc-99m Myoview. Time of rest injection: Date: 12/16/2021 Exercise Stress At peak stress, the patient was injected intravenously with 10mCi of Tc-99m Myoview. Time of stress injection: 09:41:10 Date: 12/16/2021 Gated Stress SPECT was performed 30 minutes after stress injection. The images were gated to evaluate regional wall motion and calculate left ventricular ejection fraction. Study Data TID = 1.12. Perfusion Wall Motion Normal left ventricular systolic function, ejection fraction 61%. Nuclear Conclusion ECG Findings: negative for ischemia Clinical Findings: negative for ischemia Nuclear Findings: negative for ischemia Exercise Capacity: normal Left Ventricular Function: normal Risk Study: low Normal myocardial perfusion study, normal left ventricular systolic ejection fraction 61%. Conclusion No chest pain, no ST changes of ischemia with exercise testing to 7 METS. Myocardial perfusion images are pending.
[2021-12-16 11:10] VITALS: BP 152/80
--- NOTE | 2021-12-16 11:50 | Event Note ---
Date: 12/16/21 The patient underwent a Lexiscan thallium stress test today, she exercised for 6 minutes of a Thanh protocol for 7 METS. There was no chest pain, no ST changes of ischemia. Myocardial perfusion images were normal, left ventricular ejection fraction 61% on gated SPECT. Patient is stable for cardiac discharge, outpatient follow-up in the next 7 to 10 days. Resume optimal blood pressure management, and optimal guideline directed medical therapy for her history of coronary artery disease.
--- NOTE | 2021-12-17 10:13 | Electrocardiograph Report ---
[facility] Test Date: 2021-12-16 Test Time: 07:36:27 Pat Name: KIRSTIE SEGURA Department: Room: A457 1 Gender: F Block Placer: JEREMIAH : 1965 Requested By: GUILLERMO MEDINA Order Number: [id number] Reading MD: Singh Hunter Measurements Intervals [place] Rate: 59 P: 60 TN: 163 QRS: 58 QRSD: 90 T: -16 QT: 419 QTc: 416 Interpretive Statements Sinus rhythm Compared to ECG 12/15/2021 10:58:39 No significant changes Electronically Signed On 12-17-2021 10:13:31 EST by Singh Hunter
--- NOTE | 2021-12-18 17:17 | Electrocardiograph Report ---
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
--- NOTE | 2021-12-18 17:19 | Electrocardiograph Report ---
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
== END 2021-12-16 15:02 | disposition home or self-care (01) ==
LOC: ED 06:30 → 4A 09:08
PROVIDERS: ADMIT Hospitalist; ATTEND Hospitalist
DX: R07.89 Other chest pain (principal); I16.0 Hypertensive urgency; I10 Essential (primary) hypertension; I25.10 Atherosclerotic heart disease of native coronary artery without angina pectoris; E78.5 Hyperlipidemia, unspecified; K21.9 Gastro-esophageal reflux disease without esophagitis; J45.909 Unspecified asthma, uncomplicated; E66.01 Morbid (severe) obesity due to excess calories; F17.200 Nicotine dependence, unspecified, uncomplicated; Z79.899 Other long term (current) drug therapy; Z98.890 Other specified postprocedural states; Z79.82 Long term (current) use of aspirin; Z95.1 Presence of aortocoronary bypass graft; Z98.51 Tubal ligation status; Z68.43 Body mass index [BMI] 50.0-59.9, adult
CPT/HCPCS: 36415; 71046; 73030; 78452; 80048; 80053; 81001; 82962; 84484; 85025; 85610; 85730; 93005; 93010; 93017; 96372; 96374; 96375; 99285; A9502; G0378; J1644; J2270; J2405